=== PATIENT | male | born 1950 | race Caucasian/White ===

== ENCOUNTER 2016-08-11 23:15 | Emergency (ER) | payer SELFPAY ==
[~2016-08-11 23:15] MED LIST: B-1100 MG PO; BACTRIM DS1 TAB PO; FOLIC ACID1 MG PO; IRON325 MG PO; PRENATABS RX PO
--- NOTE | 2016-08-12 03:10 | DIAGNOSTIC IMAGING REPORT ---
PROCEDURE: CT HEAD WITHOUT CONTRAST INDICATION: TRAUMA/INJURY TECHNIQUE: Noncontrast axial images with sagittal and coronal reformations. Preliminary report provided by Kyle Thacker MD ([facility]). COMPARISON: None. FINDINGS: Mild extracranial soft tissue swelling over the left lateral frontal scalp. Mild to moderate cortical atrophic changes. Brain and ventricles are otherwise normal. No evidence of an acute process or hemorrhage. Sinuses and mastoids are normal. IMPRESSION: 1. Mild extracranial soft tissue swelling over the left frontal scalp. 2. Mild generalize cortical atrophic changes. 3. Otherwise negative head CT. No evidence of intracranial injury. 4. Preliminary report provided to Dr. Jeremy Kenny. All CT scans at this facility use dose modulation, iterative reconstruction, and/or weight-based dosing when appropriate to reduce radiation dose to as low as reasonably achievable.
--- NOTE | 2016-08-12 03:10 | DIAGNOSTIC IMAGING REPORT ---
PROCEDURE: CT HEAD WITHOUT CONTRAST INDICATION: TRAUMA/INJURY TECHNIQUE: Noncontrast axial images with sagittal and coronal reformations. Preliminary report provided by Kyle Thacker MD ([facility]). COMPARISON: None. FINDINGS: Mild extracranial soft tissue swelling over the left lateral frontal scalp. Mild to moderate cortical atrophic changes. Brain and ventricles are otherwise normal. No evidence of an acute process or hemorrhage. Sinuses and mastoids are normal. IMPRESSION: 1. Mild extracranial soft tissue swelling over the left frontal scalp. 2. Mild generalize cortical atrophic changes. 3. Otherwise negative head CT. No evidence of intracranial injury. 4. Preliminary report provided to Dr. Jeermy Kenny. All CT scans at this facility use dose modulation, iterative reconstruction, and/or weight-based dosing when appropriate to reduce radiation dose to as low as reasonably achievable.
--- NOTE | 2016-08-12 09:30 | ED CLINICAL REPORT ---
Clinical Report - Physicians/Mid Levels [facility] [address] [place] [address] 08/11/2016 23:15 Patient: LORNE MOLINA Time Seen: 00:52 Aug 12 2016. Arrived- By private vehicle. Historian- patient. CPT: ER phys charges level 4 (#[id number]). HISTORY OF PRESENT ILLNESS Chief Complaint: INJURY TO HEAD. Location of injuries- head. The injury occurred just prior to arrival. Fell (intoxicated and fell, hitting head.). Occurred on a street. The patient complains of mild pain. The patient sustained a blow to the head and had uncertain duration loss of consciousness. No neck pain. Not dazed. REVIEW OF SYSTEMS No numbness, nausea, chest pain, weakness or vomiting. No laceration. All systems otherwise negative, except as recorded above. PAST HISTORY See nurses notes. Substance Abuse Alcoholism. Emphysema. ADDITIONAL SURGERIES: GI surgery to remove a tumor. --. Tetanus immunization status is up-to-date. SOCIAL HISTORY Regular alcohol use. ADDITIONAL NOTES The nursing notes have been reviewed. PHYSICAL EXAM Vital Signs: 08/11/2016 23:17 BP: 135/91. HR: 81. RR: 24. O2 saturation: 97%. Temp: 97.3 F. Li-Johnson pain scale: 4/10. Appearance: Alert. Head: Forehead: small abrasion. Eyes: Pupils equal, round and reactive to light. EOM intact. ENT: No dental injury. Neck: Painless ROM. Neck non-tender. CVS: Heart sounds normal. Pulses normal. Respiratory: Breath sounds normal. Chest nontender. Abdomen: Soft and nontender. Back: No tenderness. Skin: Skin intact. Skin warm. Extremities: Normal inspection. Pelvis stable. Extremities atraumatic. Neuro: Altered mental status: lethargic. Eyes open spontaneously. Best verbal response: disoriented. Best motor response: obeys commands. Mood/affect normal. No motor deficit. No sensory deficit. LABS, X-RAYS, AND EKG CT Head: No acute disease. Laboratory Tests: CBC w Diff: (ROXANNE: 08/12/2016 01:30) ( MsgRcvd 08/12/2016 01:38) Final results Test Result Flag Units (Reference) WHITE BLOOD COUNT 6.5 K/uL (4.5-11.5) RED BLOOD COUNT 4.65 M/uL (4.50-5.90) HEMOGLOBIN 14.0 gm/dL (13.5-17.5) HEMATOCRIT 41.5 % (41.0-53.0) MEAN CELL VOLUME 89 fL (80-100) MEAN CORPUSCULAR HGB 30 pg (26-34) MEAN CORPUSCULAR HGB CONC 34 g/dL (31-37) RED CELL DISTRIBUTION WIDTH 15.1 H % (11.6-14.8) PLATELET COUNT 238 K/uL (150-400) NEUTROPHIL % 55.8 % (50-75) LYMPH % 33.3 % (25-40) MONO % 9.0 % (3-14) EOSINOPHIL % 1.4 % (0-4) BASOPHIL % 0.5 % (0-2) PT with INR: (ROXANNE: 08/12/2016 01:30) ( [facility] 08/12/2016 01:46) Final results Test Result Flag Units (Reference) INR 0.9 (0.8-1.2) Low Intensity Therapy: INR 1.5-2.0 PT range 18.5-23.1Mod.Intensity Therapy: INR 2.0-3.0 PT range 23.1-31.5High Intensity Therapy: INR 2.5-3.5 PT range 27.4-35.5High Intensity Therapy 2: INR 3.0-4.0 PT range 31.5-39.3 Ethyl Alcohol: (ROXANNE: 08/12/2016 06:40) ( [facility] 08/12/2016 06:57) Final results Test Result Flag Units (Reference) ETHYL ALCOHOL 125 H mg/dL (3-10) CMP: (ROXANNE: 08/12/2016 01:30) ( [facility] 08/12/2016 01:53) Final results Test Result Flag Units (Reference) GLUCOSE 89 mg/dL (70-110) BUN 7 mg/dL (7-18) CREATININE 0.6 mg/dL (0.6-1.3) Estimated GFR >60 mL/min Estimated GFR- >60 mL/min Note: Persistent reduction over 3 months in eGFR<60 mL/min/1.73 m2 defines CKD. Patients with eGFR values>=60 mL/min/1.73 m2 may also have CKD if evidence ofpersistent proteinuria. Additional information may be foundat www.kidney.org. SODIUM 138 mmol/L (136-145) POTASSIUM 3.4 L mmol/L (3.5-5.1) CHLORIDE 101 mmol/L (98-107) CARBON DIOXIDE 23 mmol/L (21-32) CALCIUM 7.9 L mg/dL (8.5-10.1) TOTAL PROTEIN 7.0 g/dL (6.4-8.2) ALBUMIN 3.4 g/dL (3.3-5.0) BILIRUBIN, TOTAL 0.3 mg/dL (0.0-1.0) ALKALINE PHOSPHATASE 78 U/L (46-116) AST (SGOT) 21 U/L (15-37) ALT (SGPT) 26 U/L (12-78) LIPASE 100 U/L (73-393) ETHYL ALCOHOL 233 H mg/dL (3-10) . PROGRESS AND PROCEDURES Course of Care: 06:50 08/12/16. Pt still lethargic and cannot get mobilized. 09:24 08/12/16. Pt now A&O times 3. Pt has 80k in the bank but will not rent an apartment. Pt says he has no intention to stop drinking alcohol. [facility] detox is offered. Patient/family counseled. Disposition: Discharged. Condition: stable and improved. CLINICAL IMPRESSION Alcohol intoxication with delirium and alcohol dependence. Fall on same level by stumbling. INSTRUCTIONS (Consider detox.). Understanding of the discharge instructions verbalized by patient. Follow-up with: [facility], , , [address], , [place], [id number] Follow up in one week. Call for an appointment. (Electronically signed by Jeremy Kenny MD 08/16/2016 20:42)
--- NOTE | 2016-08-12 09:30 | ED ORDER SUMMARY ---
..... Patient: LORNE MOLINA OrderSheet [facility] VisitID: [id number] [place] [address] 65y, M Registration Date/Time: 08/11/2016 ORDER SHEET Weight: 77.1 kg (stated) Allergies: No Known Drug Allergy GENERAL ORDERS: CT Head wo Cont Urgent (00:56 08/12/2016 Garret JUDD) (Ack 0:58 CHagerty ER Reefer Engineer) (1:47 CHagerty ER Reefer Engineer) CBC w Diff Urgent (00:56 08/12/2016 Garret JUDD) (Ack 0:58 CHagerty ER Reefer Engineer) (1:36 DDavis R.N.) CMP Urgent (00:56 08/12/2016 Garret JUDD) (Ack 0:58 [facility] ER Reefer Engineer) (1:36 DDavis R.N.) Lipase Urgent (00:56 08/12/2016 Garret JUDD) (Ack 0:58 CHagerty ER Reefer Engineer) (1:36 DDavis R.N.) Ethyl Alcohol Urgent (00:56 08/12/2016 Garret JUDD) (Ack 0:58 CHagerty ER Reefer Engineer) (1:36 DDavis R.N.) PT with INR Urgent (00:56 08/12/2016 Garret JUDD) (Ack 0:58 CHagerty ER Reefer Engineer) (1:36 DDavis R.N.) Ethyl Alcohol Urgent (06:34 08/12/2016 DDavis R.N. verbal order read back to Garret JUDD) (Ack 6:35 CHagerty ER Reefer Engineer) (7:21 JSimbeck R.N.) - (breakfast and home.) (09:24 08/12/2016 Garret JUDD) (9:34 OHernandez) MEDICATION ORDERS: Thiamine IM 100 mg (NOW) (00:56 08/12/2016 Garret JUDD) (1:36 DDavis R.N.) IV FLUIDS: ORDER SHEET NOTES: [Electronically signed by David Mohan R.N. (12:48 08/12/2016)] [Electronically signed by Jeremy Kenny MD (20:42 08/16/2016)] [Electronically locked/signed by David Mohan R.N. (12:48 08/12/2016)]
--- NOTE | 2016-08-12 09:30 | ED NURSING NOTES ---
Clinical Report - Nurses [facility] [place] [address] 08/11/2016 23:15 Patient: LORNE MOLINA TRIAGE Triage time 23:18. Acuity: LEVEL 3. Chief Complaint: FALL (from standing, unwitnessed, unknown LOC). ANGELA COMA SCORE: Angela Coma Scale: 14- eyes open spontaneously (4); best verbal response- disoriented (4); best motor response- obeys commands (6). --23:22 Mynor Heard R.N. 23:17 08/11/16. BP: 135/91. HR: 81. RR: 24 (regular and labored). O2 saturation: 97%. Temp: 97.3 F (oral). Li-Johnson pain scale: 4/10. --23:22 Mynor Heard R.N. Weight: 77.1 kg stated. Height/Length: 70 inches Per Patient. BMI: 24.4. --23:21 Mynor Heard R.N. Medications None. --23:18 Mynor Heard R.N. Allergies No Known Drug Allergy. --23:18 Mynor Heard R.N. History Arrived by EMS. Historian: patient. This occurred just prior to arrival. SOCIAL HX: Smoker- current status unknown (cigarette). Alcohol use. No drug use. ( Denies SI/HI). FALL RISK ASSESSMENT: Fall risk assessment completed. No fall risk identified. NUTRITIONAL RISK ASSESSMENT: The nutritional risk assessment revealed no deficiencies. FUNCTIONAL ASSESSMENT: Functional assessment: no impairments noted. LEARNING NEEDS ASSESSMENT: The learning needs assessment revealed no barriers. --23:22 Mynor Heard R.N. PROBLEMS: Substance Abuse [Active]. --23:18 Mynor Heard R.N. Alcoholism. Emphysema. --23:18 Mynor Heard R.N. ADDITIONAL SURGERIES: GI surgery to remove a tumor. --23:18 Mynor Heard R.N. Interventions ID band on patient. To treatment room. --23:22 Mynor Heard R.N. PHYSICAL ASSESSMENT To room via stretcher. GENERAL / NEURO / PSYCH: The patient is disoriented to place, time and situation. Does not appear in pain or distress or anxious. SKIN: Skin is warm and dry. Skin not intact. ( abrasions above left eyebrow, no laceration observed). --23:24 Mynor Heard R.N. GENERAL / NEURO / PSYCH: ( patient calm and conversant, smells like etoh and cigarette smoke). Does not appear in pain or distress or anxious. RESPIRATORY: Respirations not labored. Breath sounds within normal limits. No decreased breath sounds. CVS: Capillary refill less than 2 seconds. --23:25 Mynor Herad R.N. RESPIRATORY: Respirations not labored. SKIN: Skin intact. Skin is warm and dry. --04:02 Mynor Heard R.N. CVS: Capillary refill less than 2 seconds. --04:02 Mynor Heard R.N. NURSING PROGRESS NOTES Two patient identifiers checked. Call light placed in reach. Side rails up x 2. Bed placed in lowest position. Brakes of bed on. Patient ready for evaluation- chart flagged. Patient waiting for evaluation. --23:39 Mynor Heard R.N. ( patinet's wounds cleansed and covered with bandage). --23:40 Mynor Heard R.N. ( patient appears to be sleeping in bed). --00:41 Mynor Heard R.N. 01:36 08/12/2016 Thiamine (Vitamin B-1) IM 100 mg given. Given in the left gluteus ca. Allergies verified and confirmed 5 rights. --01:36 Mynor Heard R.N. ( Patient urinated all over himself and the bed. Bed linen changed, patient changed into a gown and cleaned up.). --01:37 Mynor Heard R.N. ( Patient urinated all over himself and the floor, and the bed. I changed his linens and cleaned him up. I put a brief on the patient.). --02:49 Mynor Heard R.N. ( patient resting in bed, appears to be sleeping in bed). --03:31 Mynor Heard R.N. ( patient sleep in bed). --04:02 Mynor Heard R.N. ( attempted to get breathalyzer x3 patient unable to blow long enough for results.). --05:11 Roma Castro R.N. 05:11 08/12/16. BP: 100/71. HR: 73. RR: 14. O2 saturation: 99%. --05:12 Roma Castro R.N. ( Patient report given to David Garcia RN). --07:11 Mynor Heard R.N. 07:30 08/12/16. BP: 100/63. HR: 72. RR: 16. O2 saturation: 96%. Pain level now: 010. --09:03 David Mohan R.N. 08:00 08/12/16. BP: 103/68. HR: 70. RR: 16. O2 saturation: 96% on room air. Pain level now: 010. --09:03 David Mohan R.N. 08:30 08/12/16. BP: 90/54. HR: 74. RR: 20. O2 saturation: 98% on room air. Pain level now: 010. --09:04 David Mohan R.N. DISPOSITION / DISCHARGE Departure time: 1005. Condition at departure: improved and stable. No learning barriers present. Discharge instructions provided and reviewed with the patient. Patient verbalized understanding. Written instructions provided in Romansh. The patient was discharged by the physician. He was discharged home. He left the Emergency Department ambulatory and via private vehicle. Patient driving. --10:06 David Mohan R.N. 09:30 08/12/16. BP: 95/52. HR: 72. RR: 16. O2 saturation: 98% on room air. Temp: 97.3 F (oral). Pain level now: 0/10. --10:06 David Mohan R.N. Locked/Released at 08/12/2016 12:48 by David Mohan R.N.
--- NOTE | 2016-08-12 09:30 | ED CLINICAL REPORT ---
Clinical Report - Physicians/Mid Levels [facility] [address] [place] [address] 08/11/2016 23:15 Patient: LORNE MOLINA Time Seen: 00:52 Aug 12 2016. Arrived- By private vehicle. Historian- patient. CPT: ER phys charges level 4 (#[id number]). HISTORY OF PRESENT ILLNESS Chief Complaint: INJURY TO HEAD. Location of injuries- head. The injury occurred just prior to arrival. Fell (intoxicated and fell, hitting head.). Occurred on a street. The patient complains of mild pain. The patient sustained a blow to the head and had uncertain duration loss of consciousness. No neck pain. Not dazed. REVIEW OF SYSTEMS No numbness, nausea, chest pain, weakness or vomiting. No laceration. All systems otherwise negative, except as recorded above. PAST HISTORY See nurses notes. Substance Abuse Alcoholism. Emphysema. ADDITIONAL SURGERIES: GI surgery to remove a tumor. --. Tetanus immunization status is up-to-date. SOCIAL HISTORY Regular alcohol use. ADDITIONAL NOTES The nursing notes have been reviewed. PHYSICAL EXAM Vital Signs: 08/11/2016 23:17 BP: 135/91. HR: 81. RR: 24. O2 saturation: 97%. Temp: 97.3 F. Li-Johnson pain scale: 4/10. Appearance: Alert. Head: Forehead: small abrasion. Eyes: Pupils equal, round and reactive to light. EOM intact. ENT: No dental injury. Neck: Painless ROM. Neck non-tender. CVS: Heart sounds normal. Pulses normal. Respiratory: Breath sounds normal. Chest nontender. Abdomen: Soft and nontender. Back: No tenderness. Skin: Skin intact. Skin warm. Extremities: Normal inspection. Pelvis stable. Extremities atraumatic. Neuro: Altered mental status: lethargic. Eyes open spontaneously. Best verbal response: disoriented. Best motor response: obeys commands. Mood/affect normal. No motor deficit. No sensory deficit. LABS, X-RAYS, AND EKG CT Head: No acute disease. Laboratory Tests: CBC w Diff: (ROXANNE: 08/12/2016 01:30) ( MsgRcvd 08/12/2016 01:38) Final results Test Result Flag Units (Reference) WHITE BLOOD COUNT 6.5 K/uL (4.5-11.5) RED BLOOD COUNT 4.65 M/uL (4.50-5.90) HEMOGLOBIN 14.0 gm/dL (13.5-17.5) HEMATOCRIT 41.5 % (41.0-53.0) MEAN CELL VOLUME 89 fL (80-100) MEAN CORPUSCULAR HGB 30 pg (26-34) MEAN CORPUSCULAR HGB CONC 34 g/dL (31-37) RED CELL DISTRIBUTION WIDTH 15.1 H % (11.6-14.8) PLATELET COUNT 238 K/uL (150-400) NEUTROPHIL % 55.8 % (50-75) LYMPH % 33.3 % (25-40) MONO % 9.0 % (3-14) EOSINOPHIL % 1.4 % (0-4) BASOPHIL % 0.5 % (0-2) PT with INR: (ROXANNE: 08/12/2016 01:30) ( [facility] 08/12/2016 01:46) Final results Test Result Flag Units (Reference) INR 0.9 (0.8-1.2) Low Intensity Therapy: INR 1.5-2.0 PT range 18.5-23.1Mod.Intensity Therapy: INR 2.0-3.0 PT range 23.1-31.5High Intensity Therapy: INR 2.5-3.5 PT range 27.4-35.5High Intensity Therapy 2: INR 3.0-4.0 PT range 31.5-39.3 Ethyl Alcohol: (ROXANNE: 08/12/2016 06:40) ( [facility] 08/12/2016 06:57) Final results Test Result Flag Units (Reference) ETHYL ALCOHOL 125 H mg/dL (3-10) CMP: (ROXANNE: 08/12/2016 01:30) ( [facility] 08/12/2016 01:53) Final results Test Result Flag Units (Reference) GLUCOSE 89 mg/dL (70-110) BUN 7 mg/dL (7-18) CREATININE 0.6 mg/dL (0.6-1.3) Estimated GFR >60 mL/min Estimated GFR- >60 mL/min Note: Persistent reduction over 3 months in eGFR<60 mL/min/1.73 m2 defines CKD. Patients with eGFR values>=60 mL/min/1.73 m2 may also have CKD if evidence ofpersistent proteinuria. Additional information may be foundat www.kidney.org. SODIUM 138 mmol/L (136-145) POTASSIUM 3.4 L mmol/L (3.5-5.1) CHLORIDE 101 mmol/L (98-107) CARBON DIOXIDE 23 mmol/L (21-32) CALCIUM 7.9 L mg/dL (8.5-10.1) TOTAL PROTEIN 7.0 g/dL (6.4-8.2) ALBUMIN 3.4 g/dL (3.3-5.0) BILIRUBIN, TOTAL 0.3 mg/dL (0.0-1.0) ALKALINE PHOSPHATASE 78 U/L (46-116) AST (SGOT) 21 U/L (15-37) ALT (SGPT) 26 U/L (12-78) LIPASE 100 U/L (73-393) ETHYL ALCOHOL 233 H mg/dL (3-10) . PROGRESS AND PROCEDURES Course of Care: 06:50 08/12/16. Pt still lethargic and cannot get mobilized. 09:24 08/12/16. Pt now A&O times 3. Pt has 80k in the bank but will not rent an apartment. Pt says he has no intention to stop drinking alcohol. [facility] detox is offered. Patient/family counseled. Disposition: Discharged. Condition: stable and improved. CLINICAL IMPRESSION Alcohol intoxication with delirium and alcohol dependence. Fall on same level by stumbling. INSTRUCTIONS (Consider detox.). Understanding of the discharge instructions verbalized by patient. Follow-up with: [facility], , , [address], , [place], [address] Follow up in one week. Call for an appointment. (Electronically signed by Jeremy Kenny MD 08/16/2016 20:42)
--- NOTE | 2016-08-12 09:30 | ED ORDER SUMMARY ---
..... Patient: LORNE MOLINA OrderSheet [facility] VisitID: [id number] [place] [address] 65y, M Registration Date/Time: 08/11/2016 ORDER SHEET Weight: 77.1 kg (stated) Allergies: No Known Drug Allergy GENERAL ORDERS: CT Head wo Cont Urgent (00:56 08/12/2016 Garret JUDD) (Ack 0:58 CHagerty ER Section Gang) (1:47 CHagerty ER Section Gang) CBC w Diff Urgent (00:56 08/12/2016 Garret JUDD) (Ack 0:58 CHagerty ER Section Gang) (1:36 DDavis R.N.) CMP Urgent (00:56 08/12/2016 Garret JUDD) (Ack 0:58 CHagerty ER Section Gang) (1:36 DDavis R.N.) Lipase Urgent (00:56 08/12/2016 Garret JUDD) (Ack 0:58 CHagerty ER Section Gang) (1:36 DDavis R.N.) Ethyl Alcohol Urgent (00:56 08/12/2016 Garret JUDD) (Ack 0:58 CHagerty ER Section Gang) (1:36 DDavis R.N.) PT with INR Urgent (00:56 08/12/2016 Garret JUDD) (Ack 0:58 CHagerty ER Section Gang) (1:36 DDavis R.N.) Ethyl Alcohol Urgent (06:34 08/12/2016 DDavis R.N. verbal order read back to Garret JUDD) (Ack 6:35 CHagerty ER Section Gang) (7:21 JSimbeck R.N.) - (breakfast and home.) (09:24 08/12/2016 Garret JUDD) (9:34 OHernandez) MEDICATION ORDERS: Thiamine IM 100 mg (NOW) (00:56 08/12/2016 Garret JUDD) (1:36 DDavis R.N.) IV FLUIDS: ORDER SHEET NOTES: [Electronically signed by David Mohan R.N. (12:48 08/12/2016)] [Electronically signed by Jeremy Kenny MD (20:42 08/16/2016)] [Electronically locked/signed by David Mohan R.N. (12:48 08/12/2016)]
--- NOTE | 2016-08-16 20:42 | ED DISCHARGE INSTRUCTIONS ---
Patient: LORNE MOLINA General Instructions [facility] VisitID: [id number] [address] [place] [address] 65y, M Registration Date/Time: 08/11/2016 Alcohol intoxication with delirium and alcohol dependence. Fall on same level by stumbling. INSTRUCTIONS (Consider detox.). Understanding of the discharge instructions verbalized by patient. Follow-up with: [facility], , , [address], , [place], [address] Follow up in one week. Call for an appointment. ADDITIONAL INFORMATION Mechanical Fall You have had a fall today. It appears that the cause is mechanical. That means that you slipped, tripped or lost your balance. If your fall had been due to fainting or a seizure, further tests would be required. Home Care: Rest today and resume your normal activities when you are feeling back to normal. If you were injured during the fall, follow the advice from your doctor regarding care of your injury. You may use acetaminophen (Tylenol) or ibuprofen (Motrin, Advil) to control pain, unless another pain medicine was prescribed. [NOTE: If you have chronic liver or kidney disease or ever had a stomach ulcer or GI bleeding, talk with your doctor before using these medicines.] Fall Prevention: Was there anything that caused your fall that can be fixed, removed, or replaced? Make your home safe by keeping walkways clear of objects you may trip over. Use non-slip pads under rugs. Do not walk in poorly lit areas. Do not stand on chairs or wobbly ladders. Use caution when reaching overhead or looking upward. This position can cause a loss of balance. Be sure your shoes fit properly, have non-slip bottoms and are in good condition. Be cautious when going up and down curbs, and walking on uneven sidewalks. If your balance is poor, consider using a cane or walker. Stay as active as you can. Balance, flexibility, strength, and endurance all come from exercise. They all play a role in preventing falls. Follow Up with your doctor or as advised by our staff. Get Prompt Medical Attention if any of the following occur: Repeated mechanical falls, or unexplained falls Dizziness, fainting or seizure Severe headache Chest pain or shortness of breath Palpitations (very rapid or very slow or irregular heartbeat) Blood in vomit, stools (black or red color) Weakness of an arm or leg or one side of the face Difficulty with speech or vision Alcohol Intoxication Alcohol intoxication occurs when you drink alcohol faster than your liver can remove it from your system. Alcohol intoxication affects your judgment and coordination. Very high blood alcohol levels can cause coma, very slow breathing and even . If you drink alcohol every day, this may gradually cause permanent damage to your liver, brain, heart, pancreas and other organs. Alcohol use during may cause permanent damage to the growing baby. Home Care: Do not drink any more alcohol. DO NOT DRIVE until all effects of the alcohol have worn off. Get lots of rest over the next few days. Drink plenty of water and other non-alcoholic liquids. Try to eat regular meals. If you have been drinking heavily on a daily basis, you may go through alcohol withdrawl. This is also called the shakes or DTs. The usual symptoms last 3 to 4 days and may include nervousness, shakiness, nausea, sweating or sleeplessness. During this time, it is best that you stay with family or friends who can help and support you. You can also admit yourself to a residential detox program. If your symptoms are severe, contact your doctor for medicines to help. Follow Up: If alcohol is causing a problem in your life, these and other organizations can help you: Alcoholics Anonymous offers support through a self-help fellowship. There are no dues or fees. See the Yellow Pages and call for time and place of meetings. www.aa.org [employer] offers support to families of alcohol users. 608.933.9849 www.al-anon.org National [place] On Alcoholism And Drug Dependence 705-903-0911 www.ncadd.org There are also inpatient or residential alcohol detox programs. Check the Internet or phonebook Yellow Pages under Drug Abuse & Treatment Centers. Get Prompt Medical Attention if any of the following occur: there) You have been given the following additional information: Fall, Mechanical Alcohol Intoxication (Electronically signed by Jeremy Kenny MD 08/16/2016 20:42)
--- NOTE | 2016-08-16 20:42 | ED MED RECONCILIATION SUMMARY ---
Patient: LORNE MOLINA Medication Reconciliation Report [facility] VisitID: [id number] [address] [place] [address] 65y, M Registration Date/Time: 08/11/2016 Weight: 77.1 kg Height/Length: 70 in. BMI: 24.4 ALLERGIES: No Known Drug Allergy The patient's Home Medications are listed below: NONE. The source(s) of the original Home Medication information: Not obtained. The following Medications were given to the patient in the Emergency Department: Thiamine [IM] IM 100 mg, administered: 08/12/2016 1:36:00 AM The following Medications were prescribed to the patient: None.
--- NOTE | 2016-08-16 20:42 | ED MAR SUMMARY ---
..... Medication Administration Record [facility] [address] [address] Patient: LORNE MOLINA Visit ID: [id number] 65y, M Weight: 77.1 kg Height/Length: 70 in BMI: 24.4 ALLERGIES: No Known Drug Allergy Given 01:36 08/12/2016 Mynor Heard R.N. Medication Administered: THIAMINE [IM] (VITAMIN B-1), Dose: 100 mg IM. Medication Ordered: Thiamine IM 100 mg (NOW).
--- NOTE | 2016-08-16 20:42 | ED MAR SUMMARY ---
..... Medication Administration Record [facility] [address] [place] [address] Patient: LORNE MOLINA Visit ID: [id number] 65y, M Weight: 77.1 kg Height/Length: 70 in BMI: 24.4 ALLERGIES: No Known Drug Allergy Given 01:36 08/12/2016 Mynor Heard R.N. Medication Administered: THIAMINE [IM] (VITAMIN B-1), Dose: 100 mg IM. Medication Ordered: Thiamine IM 100 mg (NOW).
--- NOTE | 2016-08-16 20:42 | ED DISCHARGE INSTRUCTIONS ---
Patient: LORNE MOLINA General Instructions [facility] VisitID: [id number] [address] [place] [address] 65y, M Registration Date/Time: 08/11/2016 Alcohol intoxication with delirium and alcohol dependence. Fall on same level by stumbling. INSTRUCTIONS (Consider detox.). Understanding of the discharge instructions verbalized by patient. Follow-up with: [facility], , , [address], , [place], [address] Follow up in one week. Call for an appointment. ADDITIONAL INFORMATION Mechanical Fall You have had a fall today. It appears that the cause is mechanical. That means that you slipped, tripped or lost your balance. If your fall had been due to fainting or a seizure, further tests would be required. Home Care: Rest today and resume your normal activities when you are feeling back to normal. If you were injured during the fall, follow the advice from your doctor regarding care of your injury. You may use acetaminophen (Tylenol) or ibuprofen (Motrin, Advil) to control pain, unless another pain medicine was prescribed. [NOTE: If you have chronic liver or kidney disease or ever had a stomach ulcer or GI bleeding, talk with your doctor before using these medicines.] Fall Prevention: Was there anything that caused your fall that can be fixed, removed, or replaced? Make your home safe by keeping walkways clear of objects you may trip over. Use non-slip pads under rugs. Do not walk in poorly lit areas. Do not stand on chairs or wobbly ladders. Use caution when reaching overhead or looking upward. This position can cause a loss of balance. Be sure your shoes fit properly, have non-slip bottoms and are in good condition. Be cautious when going up and down curbs, and walking on uneven sidewalks. If your balance is poor, consider using a cane or walker. Stay as active as you can. Balance, flexibility, strength, and endurance all come from exercise. They all play a role in preventing falls. Follow Up with your doctor or as advised by our staff. Get Prompt Medical Attention if any of the following occur: Repeated mechanical falls, or unexplained falls Dizziness, fainting or seizure Severe headache Chest pain or shortness of breath Palpitations (very rapid or very slow or irregular heartbeat) Blood in vomit, stools (black or red color) Weakness of an arm or leg or one side of the face Difficulty with speech or vision Alcohol Intoxication Alcohol intoxication occurs when you drink alcohol faster than your liver can remove it from your system. Alcohol intoxication affects your judgment and coordination. Very high blood alcohol levels can cause coma, very slow breathing and even . If you drink alcohol every day, this may gradually cause permanent damage to your liver, brain, heart, pancreas and other organs. Alcohol use during may cause permanent damage to the growing baby. Home Care: Do not drink any more alcohol. DO NOT DRIVE until all effects of the alcohol have worn off. Get lots of rest over the next few days. Drink plenty of water and other non-alcoholic liquids. Try to eat regular meals. If you have been drinking heavily on a daily basis, you may go through alcohol withdrawl. This is also called the shakes or DTs. The usual symptoms last 3 to 4 days and may include nervousness, shakiness, nausea, sweating or sleeplessness. During this time, it is best that you stay with family or friends who can help and support you. You can also admit yourself to a residential detox program. If your symptoms are severe, contact your doctor for medicines to help. Follow Up: If alcohol is causing a problem in your life, these and other organizations can help you: Alcoholics Anonymous offers support through a self-help fellowship. There are no dues or fees. See the Yellow Pages and call for time and place of meetings. www.aa.org [employer] offers support to families of alcohol users. 273.258.2414 www.al-anon.org [employer] [facility] [employer] 335-816-2707 www.ncadd.org There are also inpatient or residential alcohol detox programs. Check the Internet or phonebook Yellow Pages under Drug Abuse & Treatment Centers. Get Prompt Medical Attention if any of the following occur: there) You have been given the following additional information: Fall, Mechanical Alcohol Intoxication (Electronically signed by Jeremy Kenny MD 08/16/2016 20:42)
--- NOTE | 2016-08-16 20:42 | ED MED RECONCILIATION SUMMARY ---
Patient: LORNE MOLINA Medication Reconciliation Report [facility] VisitID: [id number] [address] [place] [address] 65y, M Registration Date/Time: 08/11/2016 Weight: 77.1 kg Height/Length: 70 in. BMI: 24.4 ALLERGIES: No Known Drug Allergy The patient's Home Medications are listed below: NONE. The source(s) of the original Home Medication information: Not obtained. The following Medications were given to the patient in the Emergency Department: Thiamine [IM] IM 100 mg, administered: 08/12/2016 1:36:00 AM The following Medications were prescribed to the patient: None.
== END 2016-08-12 10:05 | disposition home or self-care (01) ==
LOC: ED SRH 23:15
DX: S00.81XA Abrasion of other part of head, initial encounter (principal); F10.221 Alcohol dependence with intoxication delirium; W19.XXXA Unspecified fall, initial encounter; Y93.9 Activity, unspecified; Y92.410 Unspecified street and highway as the place of occurrence of the external cause; Y99.9 Unspecified external cause status
CPT/HCPCS: 90100; 92010; 92235; 94060; 95059

== ENCOUNTER 2016-08-12 19:23 | Emergency (ER) | payer SELFPAY ==
--- NOTE | 2016-08-12 21:52 | DIAGNOSTIC IMAGING REPORT ---
PROCEDURE: CT HEAD WITHOUT CONTRAST INDICATION: Left frontal abrasion. TECHNIQUE: Noncontrast axial images with sagittal and coronal reformations. COMPARISON: Head CT 08/12/2016 at 01:41 a.m. FINDINGS: Minor left frontal scalp contusion. Mild cortical atrophy and enlargement of the ventricular system. Minor white matter chronic ischemic changes. There is no acute CVA, hemorrhage, mass or midline shift. Minor right maxillary sinus disease. Opacified right mastoid air cells. IMPRESSION: 1. Mild left frontal scalp contusion 2. Mild cortical atrophy with minor white matter chronic ischemic changes 3. No acute intracranial abnormality 4. Opacified right mastoid air cells which may represent mastoiditis 5. Findings discussed with Ward Rankin at 09:44 p.m., [place] Standard Time
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
--- NOTE | 2016-08-13 07:00 | ED NURSING NOTES ---
Clinical Report - Nurses [facility] [address] [place] [address] 08/12/2016 19:23 Patient: LORNE MOLINA TRIAGE Triage time 19:15 Aug 12 2016. Acuity: LEVEL 3. Chief Complaint: ALTERED MENTAL STATUS. Alert. No acute distress. SEPSIS SCREEN: Sepsis Screen. Negative (no infection suspected/documented). NAVEED COMA SCORE: Marietta Coma Scale: 14- eyes open spontaneously (4); best verbal response- disoriented (4); best motor response- obeys commands (6). --19:50 Destini Bhandari R.N. 19:54 08/12/16. BP: 147/103. HR: 98. RR: 16. O2 saturation: 98%. Temp: 98.5 F. Pain level now: 0/10. --19:54 Destini Bhandari R.N. Weight: 81.6 kg estimated. Height/Length: 74 inches Estimated. BMI: 23.1. --19:48 Destini Bhandari R.N. Medications None. --19:47 Destini Bhandari R.N. Allergies No Known Drug Allergy. --19:47 Destini Bhandari R.N. History Arrived by EMS. Historian: patient. ( ETOH). 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 PAST MEDICAL HX: Immunizations: status is unknown. SOCIAL HX: Current every day heavy tobacco smoker. Heavy alcohol use; consumes beer. No drug use. No infectious disease exposure. SELF HARM ASSESSMENT: A self harm assessment was performed. (unable to obtain). NUTRITIONAL RISK ASSESSMENT: The nutritional risk assessment revealed no deficiencies. FUNCTIONAL ASSESSMENT: Functional assessment: no impairments noted. LEARNING NEEDS ASSESSMENT: The learning needs assessment revealed no barriers. ABUSE ASSESSMENT: Abuse assessment: unable to obtain. FALL RISK ASSESSMENT: Fall risk assessment completed. Risk factors identified include patient history of fall and impairment of cognition. SKIN INTEGRITY ASSESSMENT: Skin integrity risk assessment completed. No skin integrity risk identified. --19:50 Destini Bhandari R.N. PROBLEMS: Substance Abuse [Active]. --19:48 Destini Bhandari R.N. Alcoholism. Emphysema. Alcohol Intoxication. Contusion. Head Injury. Fall. --19:48 Destini Bhandari R.N. ADDITIONAL SURGERIES: GI surgery to remove a tumor. --19:48 Destini Bhandari R.N. Interventions ID band on patient. To room. --19:50 Destini Bhandari R.N. PHYSICAL ASSESSMENT To room via stretcher. Patient gowned. GENERAL / NEURO / PSYCH: Alert. The patient is disoriented to person. Patient's speech is whispered. Patient appears unkempt and smells of alcohol. RESPIRATORY: Cough. The patient is a smoker. It has been similar to previous symptoms. CVS: Capillary refill less than 2 seconds. GI / : Abdomen soft and nontender. EXTREMITIES: No lower extremity edema. SKIN: Skin is warm and dry. --19:51 Destini Bhandari R.N. NURSING PROGRESS NOTES Patient gowned. Head of bed elevated 30 degrees. 14 fr price catheter placed. Reason for indwelling catheter: patient's decreased level of consciousness. During procedure hand hygiene observed and sterile equipment and aseptic technique used. Return of 100 mL yellow-colored clear urine; attached to bedside drainage bag positioned below the bladder and secured with stabilization device. He tolerated procedure well. Patient identifiers checked. Side rails up x 2. Bed placed in lowest position. Brakes of bed on. --19:54 Destini Bhandari R.N. 20:03 08/12/2016 Ativan (LORazepam) IM 2 mg given. Given in the left anterior lateral thigh. Allergies verified, confirmed 5 rights and sedative warning given to the patient. --20:03 Destini Bhandari R.N. Reassessment after medication administered. He is sleeping. Overall patient status is the same. RESPIRATORY: No respiratory distress. SKIN: Skin is warm and dry. --21:01 Destini Bhandari R.N. Care transferred and report given (Rebecca CAMPUZANO). --23:09 Destini Bhandari R.N. ( Patient resting quietly). --23:33 Juanito, Rebecca The patient is sleeping. RESPIRATORY: No respiratory distress. SKIN: Skin is warm and dry. --00:35 Juanito Rebecca ( Patient cannot perform the breathalyzer, provider notified. Blood draw to follow.). --00:58 JuanitoMagy michelh Patient ID band checked for patient name and birthdate: patient confirmed. Blood samples drawn from the left hand with 21g butterfly by nurse ; labeled in presence of the patient and sent to lab: yancy set. --01:10 Juanito Rebecca 02:30 08/13/16. BP: 154/91. HR: 78. RR: 20. O2 saturation: 95% on room air. Pain level now: 0/10. --02:50 Rebecca Solomon ( Patient given PO food and fluids. Patient cooperative and alert at this time.). --02:50 Juanito Rebecca The patient is sleeping. GENERAL / NEURO / PSYCH: Patient is calm and cooperative. RESPIRATORY: No respiratory distress. SKIN: Skin is warm and dry. --04:41 Rebecca Solomon ( Patient repositioned in the bed. No complaints at this time.). --05:37 Juanito Rebecca ( Breathalyzer .027). --05:41 Juanito Rebecca ( Patient walked to restroom, patient unsteady on his feet. Patient returned to bed and resting quietly. Breakfast ordered for the patient.). --06:50 Juanito Rebecca Care transferred and report given (Khushbu Viramontes). --07:14 Juanito Rebecca Care transferred and report received (from Rebecca Garcia RN). --07:19 Khushbu Thomas R.N. Patient informed about plan of care. ( First contact with Pt. Pt resting quietly does not voice any concerns at this time.). --07:21 Khushbu Thomas R.N. 08:13 08/13/2016 TDAP IM 0.5 mL given. (Lot#: [id number], expiration date: 01/01/2018). Given in the left deltoid. Allergies verified and confirmed 5 rights. Vaccine information statement provided to the patient. --08:13 Khushbu Thomas R.N. Restraint Flowsheet Initial restraint assessment. He has demonstrated non-violent behavior including confusion and fall risk that requires restraints. Alternatives to restraints have been attempted via modifications to environment by decreasing the surrounding stimulus and reality orientation by frequent reminding. Alternative to restraints failed: patient inability to follow directions. Restraint education. Unable to teach at this time. Applied left wrist restraints and right ankle restraints anchored to the stretcher base. Observed by a nurse. Assessment: airway- patent; circulation- capillary refill is less than 2 seconds; mental status- patient is calm; skin- intact, warm and color is within normal limits; behavior is cooperative. Restraints are properly applied. --19:53 Destini Bhandari R.N. 21:00 08/12/16. Subsequent restraint assessment. He has demonstrated non-violent behavior including confusion that requires restraints. Assessment: airway- patent; circulation- capillary refill is less than 2 seconds and pulses palpable; mental status- patient is confused; skin- intact, warm and color is within normal limits; indwelling lines / tubes- performing without impedence of flow; behavior is cooperative. Restraints are properly applied. --23:07 Destini Bhandari R.N. 21:15 08/12/16. Assessment: airway- patent; circulation- capillary refill is less than 2 seconds; mental status- patient is calm; skin- intact, warm and color is within normal limits; indwelling lines / tubes- performing without impedence of flow; behavior is cooperative. Interventions: musculoskeletal- restraints released; emotional support offered. Restraints have been removed (pt cooperative with care and no longer trying to get out of bed.). --23:09 Destini Bhandari R.N. DISPOSITION / DISCHARGE 08:11 08/13/16. BP: 119/70. HR: 90. RR: 16. O2 saturation: 98%. Temp: 98.3 F. Li-Johnson pain scale: 05/06. --08:12 Khushbu Thomas R.N. 08:20. ( pt. ambulating and appears stable at discharge. Does not voice any concerns at this time.). NAVEED COMA SCORE: Marietta Coma Scale: 15- eyes open spontaneously (4); best verbal response- oriented x 4 (5); best motor response- obeys commands (6). --08:33 Khushbu Thomas R.N. 08:20. Departure time: 829. No learning barriers present. Discharge instructions provided and reviewed with the patient. Reviewed referral to family practice for followup. Patient verbalized understanding. Written instructions provided in Swiss. The patient was discharged home and unaccompanied at time of discharge. He left the Emergency Department ambulatory. Medication list reviewed and validated. --08:33 Khushbu Thomas R.N. Locked/Released at 08/13/2016 8:34 by Khushbu Thomas R.N.
--- NOTE | 2016-08-13 07:01 | ED ORDER SUMMARY ---
..... Patient: LORNE MOLINA OrderSheet [facility] VisitID: [id number] [place] [address] 65y, M Registration Date/Time: 08/12/2016 ORDER SHEET Weight: 81.6 kg (estimated) Allergies: No Known Drug Allergy GENERAL ORDERS: CT Head wo Cont Urgent (19:47 08/12/2016 JCoates) (Ack 19:49 OSnell) (21:27 OSnell) Breathalyzer (00:52 08/13/2016 HSoule verbal order read back to [facility] JUDD) (0:57 HSoule) CBC w Diff Urgent (01:00 08/13/2016 HSoule verbal order read back to [facility] JUDD) (Ack 1:01 OSnell) (3:54 HSoule) CMP Urgent (01:00 08/13/2016 HSoule verbal order read back to [facility] JUDD) (Ack 1:01 OSnell) (3:54 HSoule) Lipase Urgent (01:00 08/13/2016 HSoule verbal order read back to [facility] JUDD) (Ack 1:01 OSnell) (3:55 HSoule) Ethyl Alcohol Urgent (01:00 08/13/2016 HSoule verbal order read back to [facility] JUDD) (Ack 1:01 OSnell) (3:55 HSoule) - (ROAD TEST AND SOME FOOD DISCHARGE IF GAIT IS STABLE) (06:58 08/13/2016 [facility] JUDD) (Ack 6:59 OSnell) (6:59 OSnell) MEDICATION ORDERS: Ativan IM 2 mg (NOW) (19:46 08/12/2016 JCoates) (20:03 Sumeet R.N.) Tdap IM 0.5 mL (NOW) (06:58 08/13/2016 [facility] UJDD) (Ack 8:01 Alina R.N.) (8:13 Alina R.N.) IV FLUIDS: ORDER SHEET NOTES: [Electronically signed by Khushbu Thomas R.N. (08:34 08/13/2016)] [Electronically signed by Aiden Harris MD (10:23 08/15/2016)] [Electronically locked/signed by Khushbu Thomas R.N. (08:34 08/13/2016)]
--- NOTE | 2016-08-13 07:01 | ED ORDER SUMMARY ---
..... Patient: LORNE MOLINA OrderSheet [facility] VisitID: [id number] [place] [address] 65y, M Registration Date/Time: 08/12/2016 ORDER SHEET Weight: 81.6 kg (estimated) Allergies: No Known Drug Allergy GENERAL ORDERS: CT Head wo Cont Urgent (19:47 08/12/2016 JCoates) (Ack 19:49 OSnell) (21:27 OSnell) Breathalyzer (00:52 08/13/2016 HSoule verbal order read back to [facility] JUDD) (0:57 HSoule) CBC w Diff Urgent (01:00 08/13/2016 HSoule verbal order read back to [facility] JUDD) (Ack 1:01 OSnell) (3:54 HSoule) CMP Urgent (01:00 08/13/2016 HSoule verbal order read back to [facility] JUDD) (Ack 1:01 OSnell) (3:54 HSoule) Lipase Urgent (01:00 08/13/2016 HSoule verbal order read back to [facility] JUDD) (Ack 1:01 OSnell) (3:55 HSoule) Ethyl Alcohol Urgent (01:00 08/13/2016 HSoule verbal order read back to [facility] JUDD) (Ack 1:01 OSnell) (3:55 HSoule) - (ROAD TEST AND SOME FOOD DISCHARGE IF GAIT IS STABLE) (06:58 08/13/2016 [facility] JUDD) (Ack 6:59 OSnell) (6:59 OSnell) MEDICATION ORDERS: Ativan IM 2 mg (NOW) (19:46 08/12/2016 JCoates) (20:03 Sumeet R.N.) Tdap IM 0.5 mL (NOW) (06:58 08/13/2016 [facility] JUDD) (Ack 8:01 Alina R.N.) (8:13 Alina R.N.) IV FLUIDS: ORDER SHEET NOTES: [Electronically signed by Khushbu Thomas R.N. (08:34 08/13/2016)] [Electronically signed by Aiden Harris MD (10:23 08/15/2016)] [Electronically locked/signed by Khushbu Thomas R.N. (08:34 08/13/2016)]
--- NOTE | 2016-08-15 10:23 | ED MED RECONCILIATION SUMMARY ---
Patient: LORNE MOLINA Medication Reconciliation Report [facility] VisitID: [id number] [address] [place] [address] 65y, M Registration Date/Time: 08/12/2016 Weight: 81.6 kg Height/Length: 74 in. BMI: 23.1 ALLERGIES: No Known Drug Allergy The patient's Home Medications are listed below: NONE. The source(s) of the original Home Medication information: Not obtained. The following Medications were given to the patient in the Emergency Department: Ativan [IM] IM 2 mg, administered: 08/12/2016 8:03:00 PM TDAP [IM] IM 0.5 mL, administered: 08/13/2016 8:13:00 AM The following Medications were prescribed to the patient: None.
--- NOTE | 2016-08-15 10:23 | ED MAR SUMMARY ---
..... Medication Administration Record [facility] [address] [place] [address] Patient: LORNE MOLINA Visit ID: [id number] 65y, M Weight: 81.6 kg Height/Length: 74 in BMI: 23.1 ALLERGIES: No Known Drug Allergy Given 20:03 08/12/2016 Destini Bhandari RRamona Medication Administered: ATIVAN [IM] (LORAZEPAM), Dose: 2 mg IM. Medication Ordered: Ativan IM 2 mg (NOW). Given 08:13 08/13/2016 Khushbu Thomas RMarlinNMarlin Medication Administered: TDAP [IM], Dose: 0.5 mL IM. Medication Ordered: Tdap IM 0.5 mL (NOW).
--- NOTE | 2016-08-15 10:23 | ED MAR SUMMARY ---
..... Medication Administration Record [facility] [address] [place] [address] Patient: LORNE MOLINA Visit ID: [id number] 65y, M Weight: 81.6 kg Height/Length: 74 in BMI: 23.1 ALLERGIES: No Known Drug Allergy Given 20:03 08/12/2016 Destini Bhandari RRamona Medication Administered: ATIVAN [IM] (LORAZEPAM), Dose: 2 mg IM. Medication Ordered: Ativan IM 2 mg (NOW). Given 08:13 08/13/2016 Khushbu Thomas RMarlinNMarlin Medication Administered: TDAP [IM], Dose: 0.5 mL IM. Medication Ordered: Tdap IM 0.5 mL (NOW).
--- NOTE | 2016-08-15 10:23 | ED MED RECONCILIATION SUMMARY ---
Patient: LORNE MOLINA Medication Reconciliation Report [facility] VisitID: [id number] [address] [place] [address] 65y, M Registration Date/Time: 08/12/2016 Weight: 81.6 kg Height/Length: 74 in. BMI: 23.1 ALLERGIES: No Known Drug Allergy The patient's Home Medications are listed below: NONE. The source(s) of the original Home Medication information: Not obtained. The following Medications were given to the patient in the Emergency Department: Ativan [IM] IM 2 mg, administered: 08/12/2016 8:03:00 PM TDAP [IM] IM 0.5 mL, administered: 08/13/2016 8:13:00 AM The following Medications were prescribed to the patient: None.
--- NOTE | 2016-08-15 10:23 | ED DISCHARGE INSTRUCTIONS ---
Patient: LORNE MOLINA General Instructions [facility] VisitID: [id number] [place] [place] [address] 65y, M Registration Date/Time: 08/12/2016 Alcohol intoxication with alcohol dependence. Minor closed head injury. Multiple superficial abrasions. INSTRUCTIONS Protect wound and keep wound area clean. You may wash wounds briefly, then dry. No driving or operating machinery. No dietary restrictions. (PLE[facility] Warnings: HEAD INJURY PRECAUTIONS: An observer must check on the patient frequently for the next 24 hours to confirm that the patient responds as expected, is not confused, has no new weakness or numbness, and has no other problems. INFECTION: Watch for signs of infection (increasing heat and redness, pus-like drainage, swelling, or increased pain). Return or see your doctor if these signs occur. GENERAL WARNINGS: Return or contact your physician immediately if your condition worsens or changes unexpectedly, if not improving as expected, or if other problems arise. Specifically return if vomiting or fever. ADDITIONAL INFORMATION Head Injury, No Wake-Up (Adult) You have had a head injury. It does not appear serious at this time. Symptoms of a more serious problem (concussion, bruising, or bleeding in the brain) may appear later. Therefore, watch for the WARNING SIGNS listed below. Home Care: Your healthcare provider will tell you whether its okay to drive. If so, you can drive yourself home. For the next day or so, be careful when driving or using heavy machinery until you are sure you have no delayed symptoms. During the next 24 hours someone must stay with you to check for the signs below. It is not necessary to stay awake or be awakened during the night. If you have swelling of the face or scalp, apply an ice pack (ice cubes in a plastic bag, wrapped in a towel) for 20 minutes. Do this every 1-2 hours until the swelling starts to go down. Do not use aspirin or ibuprofen (Motrin, Advil) after a head injury.You may use acetaminophen (Tylenol)to control pain, unless another pain medicine was prescribed. [NOTE: If you have chronic liver or kidney disease or ever had a stomach ulcer or GI bleeding, talk with your doctor before using these medicines.] For the next 24 hours: Do not take alcohol, sedatives or medicines that make you sleepy. Avoid strenuous activities. No lifting or straining. If you have had any symptoms of a concussion today (nausea, vomiting, dizziness, confusion, headache, memory loss or if you were knocked out), do not return to sports or any activity that could result in another head injury until all symptoms are gone and you have been cleared by your doctor. A second head injury before fully recovering from the first one can lead to serious brain injury. Follow Up with your doctor if symptoms are not improving after 24 hours, or as directed. [NOTE: A radiologist will review any X-rays or CT scans that were taken. We will notify you of any new findings that may affect your care.] Get Prompt Medical Attention if any of the followingWARNING SIGNS occur: Repeated vomiting Severe or worsening headache or dizziness Unusual drowsiness, or unable to awaken as usual Confusion or change in behavior or speech, memory loss, blurred vision Convulsion (seizure) Increasing scalp or face swelling Redness, warmth or pus from the swollen area Fluid drainage or bleeding from the nose or ears You have been given the following additional information: HEAD INJURY, No Wake-Up (Adult) No driving or operating machinery. (Electronically signed by Aiden Harris MD 08/15/2016 10:23)
== END 2016-08-13 08:30 | disposition home or self-care (01) ==
LOC: ED SRH 19:23
DX: S09.90XA Unspecified injury of head, initial encounter (principal); F10.221 Alcohol dependence with intoxication delirium; W01.198A Fall on same level from slipping, tripping and stumbling with subsequent striking against other object, initial encounter; Y93.9 Activity, unspecified; Y92.410 Unspecified street and highway as the place of occurrence of the external cause; Y99.8 Other external cause status
CPT/HCPCS: 90100; 92010; 92235; 95059

== ENCOUNTER 2016-08-13 17:47 | Emergency (ER) | payer SELFPAY ==
--- NOTE | 2016-08-14 09:37 | ED CLINICAL REPORT ---
Clinical Report - Physicians/Mid Levels [facility] [address] [place] [address] 08/13/2016 17:55 Patient: LORNE MOLINA Time Seen: 18:06; initial patient contact. Arrived- By ambulance. Historian- patient and EMS personnel. pt was delivered to the ER by the [place] [facility]/police for an involuntary evaluation. pt has been found to be a vulnerable elder adult and the community is concerned for his safety and inabilty to make decisions for himself. CPT: ER phys charges level 5 (#[id number]). HISTORY OF PRESENT ILLNESS Chief Complaint: INTOXICATED and BIZARRE BEHAVIOR. ; had been found laying in the street earlier this week. Wants to stop drinking. Wants to enter detox program. Unknown as to when symptoms started. Duration of substance abuse- 12 years. Substances abused: Alcohol. Last drink less than 12 hours ago. No fever, chills, nausea, vomiting or diarrhea. No abdominal pain or tremors. He has been confused and depressed and had delusions. The symptoms are described as mild. No injuries noted. No recent fall. Not assaulted. Similar symptoms previously: Many times. Recent medical care: The patient was seen recently at this facility in the emergency department. REVIEW OF SYSTEMS No sweats, headache, dizziness, sore throat or cough. No difficulty breathing, skin abscess or joint pain. He has had difficulty walking. All systems otherwise negative, except as recorded above. PAST HISTORY See nurses notes. Longstanding history of alcoholism. Drinks a six pack of beer (12 years). Psychiatric problems. Problems: Substance Abuse [Active]. Abrasion(s). Alcoholism. Emphysema. Alcohol Intoxication. Contusion. Medications: None. Allergies: None. SOCIAL HISTORY Regular heavy alcohol use; consumes four beers a day. Last drink was 4 hours ago. Patient is a longstanding alcoholic. Under the influence in E.D. FAMILY HISTORY Negative. ADDITIONAL NOTES The nursing notes have been reviewed with agreement regarding the chief complaint, HPI, ROS, PMH and patient medications and allergies. PHYSICAL EXAM Vital Signs: 08/13/2016 18:27 BP: 123/75. HR: 91. RR: 16. O2 saturation: 98%. Temp: 97.9 F. Have been reviewed. Appearance: Alert. Oriented X3. No acute distress. Head: Head atraumatic. Eyes: Pupils equal, round and reactive to light. ENT: Normal ENT inspection. Airway intact. Moist mucous membranes. Pharynx normal. Neck: Normal inspection. Neck supple. CVS: Normal heart rate and rhythm. Heart sounds normal. Pulses normal. Respiratory: No respiratory distress. Breath sounds normal. Abdomen: Soft and nontender. No organomegaly. Back: Normal inspection. Skin: Skin warm and dry. Normal skin color. No rash. Normal skin turgor. Extremities: Extremities exhibit normal ROM. No lower extremity edema. Neuro: Alert. Abnormal verbal response (inappropriate). No cerebellar findings. No motor deficit. No sensory deficit. Psych: The patient exhibits altered thought processes, verbalized as circumstantial thoughts. No apparent hallucinations or delusions. Denies suicidal thoughts. Insight and judgement normal. (became beligerent with repeatedly being asked to go back to his room, he left multiple times despite security and nurses urging him to return to his exam room, necessitating placement in room 16 .). LABS, X-RAYS, AND EKG Laboratory Tests: CBC w Diff: (ROXANNE: 08/13/2016 19:33) ( MsgRcvd 08/13/2016 19:59) Final results Test Result Flag Units (Reference) WHITE BLOOD COUNT 16.8 # H K/uL (4.5-11.5) RED BLOOD COUNT 4.93 M/uL (4.50-5.90) HEMOGLOBIN 14.8 gm/dL (13.5-17.5) HEMATOCRIT 44.7 % (41.0-53.0) MEAN CELL VOLUME 91 fL (80-100) MEAN CORPUSCULAR HGB 30 pg (26-34) MEAN CORPUSCULAR HGB CONC 33 g/dL (31-37) RED CELL DISTRIBUTION WIDTH 15.6 H % (11.6-14.8) PLATELET COUNT 246 K/uL (150-400) NEUTROPHIL % 80.1 H % (50-75) LYMPH % 9.3 L % (25-40) MONO % 9.8 % (3-14) EOSINOPHIL % 0.5 % (0-4) BASOPHIL % 0.3 % (0-2) Urine Drug Screen: (ROXANNE: 08/13/2016 19:33) ( MsgRcvd 08/13/2016 20:17) Final results Test Result Flag Units (Reference) AMPHETAMINE/METHAMPHETAMINE NEGATIVE (NEGATIVE) BARBITURATE NEGATIVE (NEGATIVE) BENZODIAZEPINE NEGATIVE (NEGATIVE) CANNABINOID NEGATIVE (NEGATIVE) COCAINE NEGATIVE (NEGATIVE) ECSTASY NEGATIVE (NEGATIVE) METHADONE NEGATIVE (NEGATIVE) OPIATE NEGATIVE (NEGATIVE) The urine drug screen is a qualitative screening test fordrug overdose and abuse. All screen results should beconsidered as presumptive.Drugs screened for are as follows:BenzodiazepinesCocaineAmphetamines/MetamphetaminesTHC (Tetrahydrocannabinol)OpiatesBarbituratesEcstasyMethadonePositive results are unconfirmed. For confirmation, notifythe lab for the specimen to be sent to the reference lab.All confirmations must be performed by a differentmethodology.The ingestion of natural herbal and plant productscontaining Ephedra/Ephedra metabolites can produce in urineone or more substances capable of cross reacting withamphetamine/methamphetamine immunoassays. These testsprovide a preliminary result only. A more specificalternative chemical method must be used to obtain aconfirmed analytical result. CMP: (ROXANNE: 08/13/2016 19:33) ( MsgRcvd 08/13/2016 20:31) Final results Test Result Flag Units (Reference) GLUCOSE 113 H mg/dL (70-110) BUN 8 mg/dL (7-18) CREATININE 0.8 mg/dL (0.6-1.3) Estimated GFR >60 mL/min Estimated GFR- >60 mL/min Note: Persistent reduction over 3 months in eGFR<60 mL/min/1.73 m2 defines CKD. Patients with eGFR values>=60 mL/min/1.73 m2 may also have CKD if evidence ofpersistent proteinuria. Additional information may be foundat [email or web address]. SODIUM 136 mmol/L (136-145) POTASSIUM 3.8 mmol/L (3.5-5.1) CHLORIDE 100 mmol/L (98-107) CARBON DIOXIDE 26 mmol/L (21-32) CALCIUM 8.4 L mg/dL (8.5-10.1) TOTAL PROTEIN 7.7 g/dL (6.4-8.2) ALBUMIN 3.8 g/dL (3.3-5.0) BILIRUBIN, TOTAL 0.7 mg/dL (0.0-1.0) ALKALINE PHOSPHATASE 98 U/L (46-116) AST (SGOT) 20 U/L (15-37) ALT (SGPT) 25 U/L (12-78) ETHYL ALCOHOL 191 H mg/dL (3-10) THYROID STIMULATING HORMONE 1.283 uIU/mL (0.30-3.74) . PROGRESS AND PROCEDURES Course of Care: pt was brought in by the [place] police and felt he was a risk to himself and also was possibly being taken advantage of and needs possible protective custody, is intoxicated, has not prison/home, pt states his truck was impounded, and he used to live in that...now is staying at a local hotel. he states he has been drinking coors beer, denies drugs, occasionally smokes a cigarette, and typically sleeps by the bike racks in [place], [place]. 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 retired in 1999, began drinking in 2004 after 20 years sobriety. states he is bored, has no family, does state he is NOT suicidal. He did state he wants to stop drinking. pt has been in the emergency room 3 different times this week for same. he was given 2 mg IM ativan due to his lack of cooperation and agitation and he proceeded to sleep. IV was placed and fluids started, discussed the case with cdp, who can't talk to him if his blood alcohol level is over a .1. will attempt to sober him up in order to facilitate an admission for detox. PAT team hear to evaluate the patient as his ETOH level dropped to 62. She says she cannot talk to him as he is too somnolent from the ativan. Will need to observe until more alert. 08:17 08/14/16. Pt awake, alert and oriented. He denies being suicidal but admits that he tripped and fell into the street. Was having a hard time getting up because he was so intoxicated with alcohol. He wishes to eat breakfast, get the price out and try to ambulate. He would like to be discharged from the ER. Pt is here for 3rd visit in 3 days , all associated with alcohol intoxication and falls. Discussed risk of serious injury to head , extremities and internal organs. Pt has been given Niko Niko info but does not want to pursue this. States he has no intention on stopping the alcohol or find prison. Discussed that if he returns in the same condition that he may have to be detained against his will as a danger to self. Patient is stable. Symptoms better. Patient/family counseled. Disposition: Discharged. Condition: stable and improved. CLINICAL IMPRESSION Contusion to the scalp and head. Fall on same level by stumbling. Chronic substance abuse- alcohol with intoxication. INSTRUCTIONS Protect wound and keep wound area clean. Change dressing daily. Keep wounds dry. You may wash wounds briefly, then dry. Apply neosporin daily. Stay with responsible adult family member (or other responsible adult). No alcohol. ([facility]). Warnings: Further evaluation is necessary. SEDATIVE MEDICATION: You were given sedative medication during your visit. Do not drive or operate dangerous machinery. GENERAL WARNINGS: Return or contact your physician immediately if your condition worsens or changes unexpectedly, if not improving as expected, or if other problems arise. Understanding of the discharge instructions verbalized by patient. Follow-up with: [facility], , , [address], , [place], [id number] Follow up in five days. Call for an appointment. (Electronically signed by Jeremy Kenny MD 08/16/2016 21:30)
--- NOTE | 2016-08-14 09:37 | ED ORDER SUMMARY ---
..... Patient: LORNE MOLINA OrderSheet [facility] VisitID: [id number] [address] [place] [address] 65y, M Registration Date/Time: 08/13/2016 ORDER SHEET Weight: 81.6 kg (stated) Allergies: None GENERAL ORDERS: CBC w Diff Urgent (19:24 08/13/2016 ABlanchette PA-C) (Ack 19:30 AMcQuoid ER Tech1) (19:53 KKnebel R.N.) CMP Urgent (19:24 08/13/2016 ABlanchette PA-C) (Ack 19:30 AMcQuoid ER Tech1) (19:53 KKnebel R.N.) TSH Urgent (19:24 08/13/2016 ABlanchette PA-C) (Ack 19:30 AMcQuoid ER Tech1) (19:53 KKnebel R.N.) Ethyl Alcohol Urgent (19:24 08/13/2016 ABlanchette PA-C) (Ack 19:30 AMcQuoid ER Tech1) (19:53 KKnebel R.N.) Urine Drug Screen Urgent (19:24 08/13/2016 ABlanchette PA-C) (Ack 19:30 AMcQuoid ER Tech1) (19:53 KKnebel R.N.) Samaniego Catheter (19:30 08/13/2016 ABlanchette PA-C) (19:53 KKnebel R.N.) UA-Culture if indicated Urgent (22:09 08/13/2016 ABlanchette PA-C) (Ack 22:12 AMcQuoid ER Tech1) (22:12 AMcQuoid ER Tech1) Ethyl Alcohol Urgent (23:47 08/13/2016 HSoule verbal order read back to ABlanchette PA-C) (23:59 AMcQuoid ER Tech1) MEDICATION ORDERS: Acetaminophen PO 650 mg (NOW) (19:13 08/13/2016 MaryDeElena R.N. verbal order read back to ABlanchette PA-C) (19:28 KKnebel R.N.) Ativan IM 2 mg (HIGH ALERT MEDICATION, NOW) (19:16 08/13/2016 ABlanchette PA-C) (19:28 KKnebel R.N.) IV FLUIDS: IV NS with Normal Saline 1 Liter: initial bolus 1000 mL (1000 mL/hr), then none - for X1 (NOW) (23:47 08/13/2016 HSoule verbal order read back to Robert BATES) (23:47 ) ORDER SHEET NOTES: [Electronically signed by Kaitlynn Arechiga R.N. (14:09 08/14/2016)] [Electronically signed by Jeremy Kenny MD (21:30 08/16/2016)] [Electronically locked/signed by Kaitlynn Arechiga R.N. (14:09 08/14/2016)]
--- NOTE | 2016-08-14 09:37 | ED NURSING NOTES ---
Clinical Report - Nurses [facility] [place] [place] [address] 08/13/2016 17:55 Patient: LORNE MOLINA TRIAGE Triage time 18:Aug 13 2016. Acuity: LEVEL 3. Chief Complaint: (ETOH). Alert. No acute distress. SEPSIS SCREEN: Sepsis Screen. Negative (no infection suspected/documented). ANGELA COMA SCORE: Angela Coma Scale: 14- eyes open spontaneously (4); best verbal response- disoriented (4); best motor response- obeys commands (6). --18:30 Destini Bhandari R.N. 18:27 08/13/16. BP: 123/75. HR: 91. RR: 16. O2 saturation: 98%. Temp: 97.9 F. --18:30 Destini Bhandari R.N. Weight: 81.6 kg stated. Height/Length: 70 inches Per Patient. BMI: 25.8. --18:29 Destini Bhandari R.N. Medications None. --18:27 Destini Bhandari R.N. Allergies None. --18:27 Destini Bhandari R.N. History Arrived by EMS. Historian: patient. This started today. Treatment OUTREACH ANALYST: None. PAST MEDICAL HX: Immunizations: status is unknown. SOCIAL HX: Current every day heavy tobacco smoker (cigarette)- 1 pack per day. Heavy alcohol use; consumes beer. No drug use. No infectious disease exposure. SELF HARM ASSESSMENT: A self harm assessment was performed. The patient answered "no" to the question "Do you have thoughts of harming or killing yourself?". FALL RISK ASSESSMENT: Fall risk assessment completed. No fall risk identified. NUTRITIONAL RISK ASSESSMENT: The nutritional risk assessment revealed no deficiencies. FUNCTIONAL ASSESSMENT: Functional assessment: no impairments noted. LEARNING NEEDS ASSESSMENT: The learning needs assessment revealed no barriers. SKIN INTEGRITY ASSESSMENT: Skin integrity risk assessment completed. No skin integrity risk identified. --18:30 Desitni Bhandari R.N. PROBLEMS: Substance Abuse [Active]. --18: Destini Bhandari R.N. Abrasion(s). Alcoholism. Emphysema. Alcohol Intoxication. Contusion. Head Injury. Fall. --18: Destini Bhandari R.N. ADDITIONAL SURGERIES: GI surgery to remove a tumor. --18: Destini Bhandari R.N. Interventions ID band on patient. To room. --18:30 Destini Bhandari R.N. PHYSICAL ASSESSMENT GENERAL / NEURO / PSYCH: Alert. Appears in no acute distress. RESPIRATORY: Respirations not labored. CVS: Capillary refill less than 2 seconds. GI / : Abdomen soft and nontender. SKIN: Skin is warm and dry. --18: Destini Bhandari R.N. NURSING PROGRESS NOTES Head of bed elevated. Patient identifiers checked. Call light placed in reach. Side rails up. Bed placed in lowest position. Brakes of bed on. --18: Destini Bhandari R.N. 08/13/2016 Ativan (LORazepam) IM 2 mg given. Given in the right anterior lateral thigh. Allergies verified, confirmed 5 rights and sedative warning given to the patient. --: Destini Bhandari R.N. 08/13/2016 Acetaminophen (APAP) PO Tablets 650 mg given. Allergies verified and confirmed 5 rights. --: Destini Bhandari R.N. Patient ID band checked for patient name and birthdate: patient confirmed. Blood samples drawn from the right antecubital space with Vacutainer 21g by nurse ; labeled in presence of the patient and sent to lab: yacny set. --19:53 Destini Bhandari R.N. 14 fr price catheter placed. During procedure hand hygiene observed and sterile equipment and aseptic technique used. Return of 50 mL yellow-colored clear urine; attached to bedside drainage bag positioned below the bladder and secured with stabilization device. He tolerated procedure well (altered mental status). --19:55 Destini Bhandari R.N. The patient is sleeping. SKIN: Skin is warm and dry. --:28 Destini Bhandari R.N. 22:24 08/13/16. BP: 106/74. HR: 80. RR: 16. O2 saturation: 97%. --22:28 Destini Bhandari R.N. Care transferred and report given (Haydee CAMPUZANO). --23:15 Destini Bhandari R.N. 23:46 08/13/2016 Site #1 started via IV in the right wrist with an 20g angiocath; one attempt. Blood drawn: rainbow set. Labeled in the presence of the patient and sent to the lab. Saline lock flushed with 10 mL saline. --23:46 Rebecca Solomon 23:47 08/13/2016 Started bag #1 1000 mL IV Fluids IV NS (Saline); at 1000 mL/hr over 1 hour(s) via site #1 via IV pump. Allergies verified and confirmed 5 rights. IV patency established. IV site checked: no pain, redness, or swelling. IV flushed thoroughly pre- and post-medication administration. --23:47 Rebecca Solomon The patient is sleeping. --23:48 Rebecca Solomon 23:46 08/13/16. BP: 131/87. HR: 79. RR: 20. O2 saturation: 97% on room air. Temp: 98.4 F (oral). --23:48 Rebecca Solomon ( PAT team at bedside for assessment. Patient has no complaints at this time. Patient given PO food and fluids.). --00:45 Rebecca Solomon ( Patient unable to be assessed as he is too sleepy and not able to hold conversation with PAT team.). --00:49 Rebecca Solomon The patient is sleeping. RESPIRATORY: No respiratory distress. SKIN: Skin is warm and dry. Skin color within normal limits. --01:52 Rebecca Solomon 00:30 08/14/2016 IV Fluids IV NS Discontinued: bag #1 completed. Total amount infused: 1000 mL. IV patency established. IV site checked: no pain, redness, or swelling. IV flushed thoroughly. --01:52 Rebecca Solomon ( Patient sleeping. 500 ml of urine emptied from Price bag. Breakfast ordered for patient.). --02:35 Rebecca Solomon ( Patient awake, calm and cooperative. Given PO fluids and encouraged to drink.). --05:47 Lane Solomonnah 05:45 08/14/16. BP: 115/64. HR: 80. RR: 20. O2 saturation: 98% on room air. --05:47 Rebecca Solomon Care transferred and report given (Kaitlynn RN). --07:20 JuanitoRebecca 07:49 08/14/16. BP: 148/87. HR: 85. RR: 18. O2 saturation: 96%. Temp: 100.1 F. --07:50 VernonMaxine. DISPOSITION / DISCHARGE 09:25 08/14/2016 Site #1 removed upon discharge. Catheter intact. Manual pressure and bandaid applied. --09:25 Khushbu Thomas R.N. Departure time: 09:50 Aug 14 2016. Condition at departure: improved and stable. ( Mark was calm and cooperative at discharge. Mark verbalized understanding of discharge instructions.). No learning barriers present. Discharge instructions provided and reviewed with the patient. Patient verbalized understanding. Written instructions provided in Portuguese. The patient was discharged by the physician. He was discharged home. He left the Emergency Department ambulatory. --14:08 Kaitlynn Arechiga R.N. 14:05 08/14/16. BP: 109/62. HR: 98. RR: 18. O2 saturation: 98% on room air. Temp: 98 F (oral). Pain level now: 0/10. --14:08 Kaitlynn Arechiga R.N. Locked/Released at 08/14/2016 14:09 by Kaitlynn Arechiga R.N.
--- NOTE | 2016-08-14 09:37 | ED CLINICAL REPORT ---
Clinical Report - Physicians/Mid Levels [facility] [address] [place] [address] 08/13/2016 17:55 Patient: LORNE MOLINA Time Seen: 18:06; initial patient contact. Arrived- By ambulance. Historian- patient and EMS personnel. pt was delivered to the ER by the [place] [facility]/police for an involuntary evaluation. pt has been found to be a vulnerable elder adult and the community is concerned for his safety and inabilty to make decisions for himself. CPT: ER phys charges level 5 (#[id number]). HISTORY OF PRESENT ILLNESS Chief Complaint: INTOXICATED and BIZARRE BEHAVIOR. ; had been found laying in the street earlier this week. Wants to stop drinking. Wants to enter detox program. Unknown as to when symptoms started. Duration of substance abuse- 12 years. Substances abused: Alcohol. Last drink less than 12 hours ago. No fever, chills, nausea, vomiting or diarrhea. No abdominal pain or tremors. He has been confused and depressed and had delusions. The symptoms are described as mild. No injuries noted. No recent fall. Not assaulted. Similar symptoms previously: Many times. Recent medical care: The patient was seen recently at this facility in the emergency department. REVIEW OF SYSTEMS No sweats, headache, dizziness, sore throat or cough. No difficulty breathing, skin abscess or joint pain. He has had difficulty walking. All systems otherwise negative, except as recorded above. PAST HISTORY See nurses notes. Longstanding history of alcoholism. Drinks a six pack of beer (12 years). Psychiatric problems. Problems: Substance Abuse [Active]. Abrasion(s). Alcoholism. Emphysema. Alcohol Intoxication. Contusion. Medications: None. Allergies: None. SOCIAL HISTORY Regular heavy alcohol use; consumes four beers a day. Last drink was 4 hours ago. Patient is a longstanding alcoholic. Under the influence in E.D. FAMILY HISTORY Negative. ADDITIONAL NOTES The nursing notes have been reviewed with agreement regarding the chief complaint, HPI, ROS, PMH and patient medications and allergies. PHYSICAL EXAM Vital Signs: 08/13/2016 18:27 BP: 123/75. HR: 91. RR: 16. O2 saturation: 98%. Temp: 97.9 F. Have been reviewed. Appearance: Alert. Oriented X3. No acute distress. Head: Head atraumatic. Eyes: Pupils equal, round and reactive to light. ENT: Normal ENT inspection. Airway intact. Moist mucous membranes. Pharynx normal. Neck: Normal inspection. Neck supple. CVS: Normal heart rate and rhythm. Heart sounds normal. Pulses normal. Respiratory: No respiratory distress. Breath sounds normal. Abdomen: Soft and nontender. No organomegaly. Back: Normal inspection. Skin: Skin warm and dry. Normal skin color. No rash. Normal skin turgor. Extremities: Extremities exhibit normal ROM. No lower extremity edema. Neuro: Alert. Abnormal verbal response (inappropriate). No cerebellar findings. No motor deficit. No sensory deficit. Psych: The patient exhibits altered thought processes, verbalized as circumstantial thoughts. No apparent hallucinations or delusions. Denies suicidal thoughts. Insight and judgement normal. (became beligerent with repeatedly being asked to go back to his room, he left multiple times despite security and nurses urging him to return to his exam room, necessitating placement in room 16 .). LABS, X-RAYS, AND EKG Laboratory Tests: CBC w Diff: (ROXANNE: 08/13/2016 19:33) ( MsgRcvd 08/13/2016 19:59) Final results Test Result Flag Units (Reference) WHITE BLOOD COUNT 16.8 # H K/uL (4.5-11.5) RED BLOOD COUNT 4.93 M/uL (4.50-5.90) HEMOGLOBIN 14.8 gm/dL (13.5-17.5) HEMATOCRIT 44.7 % (41.0-53.0) MEAN CELL VOLUME 91 fL (80-100) MEAN CORPUSCULAR HGB 30 pg (26-34) MEAN CORPUSCULAR HGB CONC 33 g/dL (31-37) RED CELL DISTRIBUTION WIDTH 15.6 H % (11.6-14.8) PLATELET COUNT 246 K/uL (150-400) NEUTROPHIL % 80.1 H % (50-75) LYMPH % 9.3 L % (25-40) MONO % 9.8 % (3-14) EOSINOPHIL % 0.5 % (0-4) BASOPHIL % 0.3 % (0-2) Urine Drug Screen: (ROXANNE: 08/13/2016 19:33) ( MsgRcvd 08/13/2016 20:17) Final results Test Result Flag Units (Reference) AMPHETAMINE/METHAMPHETAMINE NEGATIVE (NEGATIVE) BARBITURATE NEGATIVE (NEGATIVE) BENZODIAZEPINE NEGATIVE (NEGATIVE) CANNABINOID NEGATIVE (NEGATIVE) COCAINE NEGATIVE (NEGATIVE) ECSTASY NEGATIVE (NEGATIVE) METHADONE NEGATIVE (NEGATIVE) OPIATE NEGATIVE (NEGATIVE) The urine drug screen is a qualitative screening test fordrug overdose and abuse. All screen results should beconsidered as presumptive.Drugs screened for are as follows:BenzodiazepinesCocaineAmphetamines/MetamphetaminesTHC (Tetrahydrocannabinol)OpiatesBarbituratesEcstasyMethadonePositive results are unconfirmed. For confirmation, notifythe lab for the specimen to be sent to the reference lab.All confirmations must be performed by a differentmethodology.The ingestion of natural herbal and plant productscontaining Ephedra/Ephedra metabolites can produce in urineone or more substances capable of cross reacting withamphetamine/methamphetamine immunoassays. These testsprovide a preliminary result only. A more specificalternative chemical method must be used to obtain aconfirmed analytical result. CMP: (ROXANNE: 08/13/2016 19:33) ( MsgRcvd 08/13/2016 20:31) Final results Test Result Flag Units (Reference) GLUCOSE 113 H mg/dL (70-110) BUN 8 mg/dL (7-18) CREATININE 0.8 mg/dL (0.6-1.3) Estimated GFR >60 mL/min Estimated GFR- >60 mL/min Note: Persistent reduction over 3 months in eGFR<60 mL/min/1.73 m2 defines CKD. Patients with eGFR values>=60 mL/min/1.73 m2 may also have CKD if evidence ofpersistent proteinuria. Additional information may be foundat www.kidney.org. SODIUM 136 mmol/L (136-145) POTASSIUM 3.8 mmol/L (3.5-5.1) CHLORIDE 100 mmol/L (98-107) CARBON DIOXIDE 26 mmol/L (21-32) CALCIUM 8.4 L mg/dL (8.5-10.1) TOTAL PROTEIN 7.7 g/dL (6.4-8.2) ALBUMIN 3.8 g/dL (3.3-5.0) BILIRUBIN, TOTAL 0.7 mg/dL (0.0-1.0) ALKALINE PHOSPHATASE 98 U/L (46-116) AST (SGOT) 20 U/L (15-37) ALT (SGPT) 25 U/L (12-78) ETHYL ALCOHOL 191 H mg/dL (3-10) THYROID STIMULATING HORMONE 1.283 uIU/mL (0.30-3.74) . PROGRESS AND PROCEDURES Course of Care: pt was brought in by the [place] police and felt he was a risk to himself and also was possibly being taken advantage of and needs possible protective custody, is intoxicated, has not fpc/home, pt states his truck was impounded, and he used to live in that...now is staying at a local hotel. he states he has been drinking coors beer, denies drugs, occasionally smokes a cigarette, and typically sleeps by the bike racks in [place], [place]. 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 retired in 1999, began drinking in 2004 after 20 years sobriety. states he is bored, has no family, does state he is NOT suicidal. He did state he wants to stop drinking. pt has been in the emergency room 3 different times this week for same. he was given 2 mg IM ativan due to his lack of cooperation and agitation and he proceeded to sleep. IV was placed and fluids started, discussed the case with cdp, who can't talk to him if his blood alcohol level is over a .1. will attempt to sober him up in order to facilitate an admission for detox. PAT team hear to evaluate the patient as his ETOH level dropped to 62. She says she cannot talk to him as he is too somnolent from the ativan. Will need to observe until more alert. 08:17 08/14/16. Pt awake, alert and oriented. He denies being suicidal but admits that he tripped and fell into the street. Was having a hard time getting up because he was so intoxicated with alcohol. He wishes to eat breakfast, get the price out and try to ambulate. He would like to be discharged from the ER. Pt is here for 3rd visit in 3 days , all associated with alcohol intoxication and falls. Discussed risk of serious injury to head , extremities and internal organs. Pt has been given [employer] info but does not want to pursue this. States he has no intention on stopping the alcohol or find fpc. Discussed that if he returns in the same condition that he may have to be detained against his will as a danger to self. Patient is stable. Symptoms better. Patient/family counseled. Disposition: Discharged. Condition: stable and improved. CLINICAL IMPRESSION Contusion to the scalp and head. Fall on same level by stumbling. Chronic substance abuse- alcohol with intoxication. INSTRUCTIONS Protect wound and keep wound area clean. Change dressing daily. Keep wounds dry. You may wash wounds briefly, then dry. Apply neosporin daily. Stay with responsible adult family member (or other responsible adult). No alcohol. ([facility] Warnings: Further evaluation is necessary. SEDATIVE MEDICATION: You were given sedative medication during your visit. Do not drive or operate dangerous machinery. GENERAL WARNINGS: Return or contact your physician immediately if your condition worsens or changes unexpectedly, if not improving as expected, or if other problems arise. Understanding of the discharge instructions verbalized by patient. Follow-up with: [facility], , , [address], , [place], [address] Follow up in five days. Call for an appointment. (Electronically signed by Jeremy Kenny MD 08/16/2016 21:30)
--- NOTE | 2016-08-14 09:37 | ED ORDER SUMMARY ---
..... Patient: LORNE MOLINA OrderSheet [facility] VisitID: [id number] [address] [place] [address] 65y, M Registration Date/Time: 08/13/2016 ORDER SHEET Weight: 81.6 kg (stated) Allergies: None GENERAL ORDERS: CBC w Diff Urgent (19:24 08/13/2016 ABlanchette PA-C) (Ack 19:30 AMcQuoid ER Tech1) (19:53 KKnebel R.N.) CMP Urgent (19:24 08/13/2016 ABlanchette PA-C) (Ack 19:30 AMcQuoid ER Tech1) (19:53 KKnebel R.N.) TSH Urgent (19:24 08/13/2016 ABlanchette PA-C) (Ack 19:30 AMcQuoid ER Tech1) (19:53 KKnebel R.N.) Ethyl Alcohol Urgent (19:24 08/13/2016 ABlanchette PA-C) (Ack 19:30 AMcQuoid ER Tech1) (19:53 KKnebel R.N.) Urine Drug Screen Urgent (19:24 08/13/2016 ABlanchette PA-C) (Ack 19:30 AMcQuoid ER Tech1) (19:53 KKnebel R.N.) Samaniego Catheter (19:30 08/13/2016 ABlanchette PA-C) (19:53 KKnebel R.N.) UA-Culture if indicated Urgent (22:09 08/13/2016 ABlanchette PA-C) (Ack 22:12 AMcQuoid ER Tech1) (22:12 AMcQuoid ER Tech1) Ethyl Alcohol Urgent (23:47 08/13/2016 HSoule verbal order read back to ABlanchette PA-C) (23:59 AMcQuoid ER Tech1) MEDICATION ORDERS: Acetaminophen PO 650 mg (NOW) (19:13 08/13/2016 MaryDeElena R.N. verbal order read back to ABlanchette PA-C) (19:28 KKnebel R.N.) Ativan IM 2 mg (HIGH ALERT MEDICATION, NOW) (19:16 08/13/2016 ABlanchette PA-C) (19:28 KKnebel R.N.) IV FLUIDS: IV NS with Normal Saline 1 Liter: initial bolus 1000 mL (1000 mL/hr), then none - for X1 (NOW) (23:47 08/13/2016 HSoule verbal order read back to Robert BATES) (23:47 ) ORDER SHEET NOTES: [Electronically signed by Kaitlynn Arechiga R.N. (14:09 08/14/2016)] [Electronically signed by Jeremy Kenny MD (21:30 08/16/2016)] [Electronically locked/signed by Kaitlynn Arechiga R.N. (14:09 08/14/2016)]
--- NOTE | 2016-08-16 21:31 | ED DISCHARGE INSTRUCTIONS ---
Patient: LORNE MOLINA General Instructions [facility] VisitID: [id number] [address] [place] [address] 65y, M Registration Date/Time: 08/13/2016 Contusion to the scalp and head. Fall on same level by stumbling. Chronic substance abuse- alcohol with intoxication. INSTRUCTIONS Protect wound and keep wound area clean. Change dressing daily. Keep wounds dry. You may wash wounds briefly, then dry. Apply neosporin daily. Stay with responsible adult family member (or other responsible adult). No alcohol. (Get to detox Go to [facility] for fdc). Warnings: Further evaluation is necessary. SEDATIVE MEDICATION: You were given sedative medication during your visit. Do not drive or operate dangerous machinery. GENERAL WARNINGS: Return or contact your physician immediately if your condition worsens or changes unexpectedly, if not improving as expected, or if other problems arise. Understanding of the discharge instructions verbalized by patient. Follow-up with: [facility], , , [address], , [place], [address] Follow up in five days. Call for an appointment. ADDITIONAL INFORMATION Contusion,Soft Tissue You have a CONTUSION, which is a bruise with swelling and some bleeding under the skin. There are no broken bones. This injury takes a few days to a few weeks to heal. Home Care: 1) Keep the injured part elevated to reduce pain and swelling. This is especially important during the first 48 hours. 2) Make an ice pack (ice cubes in a plastic bag, wrapped in a towel) and apply for 20 minutes every 1-2 hours the first day. Continue this 3-4 times a day until the pain and swelling goes away. 3) You may use acetaminophen (Tylenol) or ibuprofen (Motrin, Advil) to control pain, unless another pain medicine was prescribed. [ NOTE : If you have chronic liver or kidney disease or ever had a stomach ulcer or GI bleeding, talk with your doctor before using these medicines.] Follow Up with your doctor or this facility if you are not improving within the next THREE days. [NOTE: If X-rays were taken, they will be reviewed by a radiologist. You will be notified of any new findings that may affect your care.] Get Prompt Medical Attention if any of the following occur: -- Pain or swelling increases -- Injured arm or leg becomes cold, blue, numb or tingly -- Redness, warmth or drainage from the skin Mechanical Fall You have had a fall today. It appears that the cause is mechanical. That means that you slipped, tripped or lost your balance. If your fall had been due to fainting or a seizure, further tests would be required. Home Care: Rest today and resume your normal activities when you are feeling back to normal. If you were injured during the fall, follow the advice from your doctor regarding care of your injury. You may use acetaminophen (Tylenol) or ibuprofen (Motrin, Advil) to control pain, unless another pain medicine was prescribed. [NOTE: If you have chronic liver or kidney disease or ever had a stomach ulcer or GI bleeding, talk with your doctor before using these medicines.] Fall Prevention: Was there anything that caused your fall that can be fixed, removed, or replaced? Make your home safe by keeping walkways clear of objects you may trip over. Use non-slip pads under rugs. Do not walk in poorly lit areas. Do not stand on chairs or wobbly ladders. Use caution when reaching overhead or looking upward. This position can cause a loss of balance. Be sure your shoes fit properly, have non-slip bottoms and are in good condition. Be cautious when going up and down curbs, and walking on uneven sidewalks. If your balance is poor, consider using a cane or walker. Stay as active as you can. Balance, flexibility, strength, and endurance all come from exercise. They all play a role in preventing falls. Follow Up with your doctor or as advised by our staff. Get Prompt Medical Attention if any of the following occur: Repeated mechanical falls, or unexplained falls Dizziness, fainting or seizure Severe headache Chest pain or shortness of breath Palpitations (very rapid or very slow or irregular heartbeat) Blood in vomit, stools (black or red color) Weakness of an arm or leg or one side of the face Difficulty with speech or vision Abrasions Abrasions are skin scrapes. Their treatment depends on how large and deep the abrasion is. Home Care: If you were given a bandage, change it once a day. If your bandage sticks to the wound, soak it in warm water until it loosens. Wash the area with soap and water to remove all the cream/ointment. You may do this in a sink, under a tub faucet or shower. Rinse off the soap and pat dry with a clean towel. Reapply cream/ointment according to your doctor's instructions. This will prevent infection and help prevent the bandage from sticking. Cover the wound with a fresh non-stick bandage (Telfa). Repeat steps 1 to 4 daily, or as directed by your doctor. If the bandage becomes wet or dirty, change it as soon as possible. You may use acetaminophen (Tylenol) or ibuprofen (Motrin, Advil) to control pain, unless another pain medicine was prescribed. [ NOTE : If you have chronic liver or kidney disease or ever had a stomach ulcer or GI bleeding, talk with your doctor before using these medicines.] Do not use ibuprofen in children under six months of age. Follow Up with your physician or this facility as directed by our staff. Most skin wounds heal within ten days. However, an infection may occur despite proper treatment. Therefore, look for the early signs of infection listed below. Get Prompt Medical Attention if any of the following occur: Increasing pain in the wound Increasing redness or swelling Pus coming from the wound Fever of 100.4F (38C) or higher, or as directed by your healthcare provider You have been given the following additional information: Contusion, Soft Tissue Fall, Mechanical Abrasion Stay with responsible adult family member (or other responsible adult). (Electronically signed by Jeremy Kenny MD 08/16/2016 21:30)
--- NOTE | 2016-08-16 21:31 | ED MED RECONCILIATION SUMMARY ---
Patient: LORNE MOLINA Medication Reconciliation Report [facility] VisitID: [id number] [address] [place] [address] 65y, M Registration Date/Time: 08/13/2016 Weight: 81.6 kg Height/Length: 70 in. BMI: 25.8 ALLERGIES: None The patient's Home Medications are listed below: NONE. The source(s) of the original Home Medication information: Not obtained. The following Medications were given to the patient in the Emergency Department: Ativan [IM] IM 2 mg, administered: 08/13/2016 7:28:00 PM Acetaminophen [PO] PO 650 mg, administered: 08/13/2016 7:28:00 PM IV NS IV Fluids bolus 0, then 1000 mL/hr, administered: 08/13/2016 11:47:00 PM The following Medications were prescribed to the patient: None.
--- NOTE | 2016-08-16 21:31 | ED MAR SUMMARY ---
..... Medication Administration Record [facility] [address] [place] [address] Patient: LORNE MOLINA Visit ID: [id number] 65y, M Weight: 81.6 kg Height/Length: 70 in BMI: 25.8 ALLERGIES: None Given 19:08/13/2016 Destini Bhandari R.N. Medication Administered: ACETAMINOPHEN [PO] (APAP), Dose: 650 mg Tablets PO. Medication Ordered: Acetaminophen PO 650 mg (NOW). Given 19:08/13/2016 Destini Bhandari R.N. Medication Administered: ATIVAN [IM] (LORAZEPAM), Dose: 2 mg IM. Medication Ordered: Ativan IM 2 mg (HIGH ALERT MEDICATION, NOW). Start 23:47 08/13/2016 Rebecca Solomon,, Stop 00:30 08/14/2016 Rebecca Solomon, Medication Administered: IV NS (SALINE), Dose: IV Fluids over 1 hour(s), Rate: 1000 mL/hr, Dispensed: 1000 mL bag, Site: #1 right wrist. Medication Ordered: IV NS with Normal Saline 1 Liter: initial bolus 1000 mL (1000 mL/hr), then none - for X1 (NOW).
--- NOTE | 2016-08-16 21:31 | ED MED RECONCILIATION SUMMARY ---
Patient: LORNE MOLINA Medication Reconciliation Report [facility] VisitID: [id number] [address] [place] [address] 65y, M Registration Date/Time: 08/13/2016 Weight: 81.6 kg Height/Length: 70 in. BMI: 25.8 ALLERGIES: None The patient's Home Medications are listed below: NONE. The source(s) of the original Home Medication information: Not obtained. The following Medications were given to the patient in the Emergency Department: Ativan [IM] IM 2 mg, administered: 08/13/2016 7:28:00 PM Acetaminophen [PO] PO 650 mg, administered: 08/13/2016 7:28:00 PM IV NS IV Fluids bolus 0, then 1000 mL/hr, administered: 08/13/2016 11:47:00 PM The following Medications were prescribed to the patient: None.
--- NOTE | 2016-08-16 21:31 | ED MAR SUMMARY ---
..... Medication Administration Record [facility] [address] [place] [address] Patient: LORNE MOLINA Visit ID: [id number] 65y, M Weight: 81.6 kg Height/Length: 70 in BMI: 25.8 ALLERGIES: None Given 19:08/13/2016 Destini Bhandari R.N. Medication Administered: ACETAMINOPHEN [PO] (APAP), Dose: 650 mg Tablets PO. Medication Ordered: Acetaminophen PO 650 mg (NOW). Given 19:08/13/2016 Destini Bhandari R.N. Medication Administered: ATIVAN [IM] (LORAZEPAM), Dose: 2 mg IM. Medication Ordered: Ativan IM 2 mg (HIGH ALERT MEDICATION, NOW). Start 23:47 08/13/2016 Rebecca Solomon,, Stop 00:30 08/14/2016 Rebecca Solomon, Medication Administered: IV NS (SALINE), Dose: IV Fluids over 1 hour(s), Rate: 1000 mL/hr, Dispensed: 1000 mL bag, Site: #1 right wrist. Medication Ordered: IV NS with Normal Saline 1 Liter: initial bolus 1000 mL (1000 mL/hr), then none - for X1 (NOW).
== END 2016-08-14 09:50 | disposition home or self-care (01) ==
LOC: ED SRH 17:47
DX: S09.93XA Unspecified injury of face, initial encounter (principal); F10.229 Alcohol dependence with intoxication, unspecified; T14.8 Other injury of unspecified body region; W19.XXXA Unspecified fall, initial encounter; Y92.410 Unspecified street and highway as the place of occurrence of the external cause; Y99.8 Other external cause status; F17.210 Nicotine dependence, cigarettes, uncomplicated
CPT/HCPCS: 90004; 90100; 92010; 92760; 92761; 92762; 92763; 92764; 92765; 92766; 92767; 93140; 95059

== ENCOUNTER 2016-08-17 08:06 | Emergency (ER) | payer OTHER ==
--- NOTE | 2016-08-17 08:45 | ED CLINICAL REPORT ---
Clinical Report - Physicians/Mid Levels [facility] [address] [place] [address] 08/17/2016 8:14 Patient: LRONE MOLINA Time Seen: 08:32; initial patient contact. Arrived- By ambulance. Historian- patient. HISTORY OF PRESENT ILLNESS Chief Complaint: Injury to the left foot. The injury happened about 1 week ago. (blister from wet socks). Occurred on a street. Patient is experiencing mild pain. Patient denies injury to the head or neck. REVIEW OF SYSTEMS The patient complains of pain on weight bearing. No swelling, suspected foreign body or skin laceration. All systems otherwise negative, except as recorded above. PAST HISTORY Substance Abuse. Mental Illness. Abrasion(s). Alcoholism. Emphysema. Alcohol Intoxication. Contusion. Head Injury. Fall. Seizure Syncope Pneumonia Hypotension SURGERIES: GI surgery to remove a tumor. SOCIAL HISTORY Current every day smoker. Heavy alcohol use. Patient is a longstanding alcoholic. ADDITIONAL NOTES The nursing notes have been reviewed. PHYSICAL EXAM Vital Signs: 08/17/2016 08:17 BP: 121/65. HR: 74. RR: 18. O2 saturation: 100%. Temp: 97.8 F. Have been reviewed as normal. Appearance: Alert. Oriented X3. No acute distress. Skin: Skin warm and dry. Extremities: Left foot, plantar aspect: mild tenderness and small abrasion of the middle aspect of the foot. Neurovascular intact distally. No erythema, swelling, laceration, ecchymosis or puncture wound. No foreign body or deformity. No ankle injury. Foot and ankle exam otherwise negative. Extremities otherwise negative. Neuro, Vascular and Tendons: Vascular status intact. Sensation intact. Motor intact. Tendon function intact. Gait: Normal gait. Neuro: Oriented X 3. No motor deficit. No sensory deficit. PROGRESS AND PROCEDURES Disposition: Discharged in good condition. Condition: good. CLINICAL IMPRESSION Single superficial skin avulsion of the left foot. (No repair). No foreign body present. INSTRUCTIONS Protect wound and keep wound area clean. You may wash wounds briefly, then dry. Apply bacitracin twice daily. Your Current Medications: CONTINUE TAKING THE FOLLOWING MEDICATIONS: None*. Follow-up: Screening today revealed the patient's blood pressure to be in the pre-hypertensive range. The patient should follow up with a primary care provider for blood pressure management. Follow-up with: [facility], , , [address], , [place], [address] Follow up in about two days. Call for an appointment. (Electronically signed by Zay Hernandez Dr. 08/17/2016 9:46)
--- NOTE | 2016-08-17 08:45 | ED CLINICAL REPORT ---
Clinical Report - Physicians/Mid Levels [facility] [address] [place] [address] 08/17/2016 8:14 Patient: LORNE MOLINA Time Seen: 08:32; initial patient contact. Arrived- By ambulance. Historian- patient. HISTORY OF PRESENT ILLNESS Chief Complaint: Injury to the left foot. The injury happened about 1 week ago. (blister from wet socks). Occurred on a street. Patient is experiencing mild pain. Patient denies injury to the head or neck. REVIEW OF SYSTEMS The patient complains of pain on weight bearing. No swelling, suspected foreign body or skin laceration. All systems otherwise negative, except as recorded above. PAST HISTORY Substance Abuse. Mental Illness. Abrasion(s). Alcoholism. Emphysema. Alcohol Intoxication. Contusion. Head Injury. Fall. Seizure Syncope Pneumonia Hypotension SURGERIES: GI surgery to remove a tumor. SOCIAL HISTORY Current every day smoker. Heavy alcohol use. Patient is a longstanding alcoholic. ADDITIONAL NOTES The nursing notes have been reviewed. PHYSICAL EXAM Vital Signs: 08/17/2016 08:17 BP: 121/65. HR: 74. RR: 18. O2 saturation: 100%. Temp: 97.8 F. Have been reviewed as normal. Appearance: Alert. Oriented X3. No acute distress. Skin: Skin warm and dry. Extremities: Left foot, plantar aspect: mild tenderness and small abrasion of the middle aspect of the foot. Neurovascular intact distally. No erythema, swelling, laceration, ecchymosis or puncture wound. No foreign body or deformity. No ankle injury. Foot and ankle exam otherwise negative. Extremities otherwise negative. Neuro, Vascular and Tendons: Vascular status intact. Sensation intact. Motor intact. Tendon function intact. Gait: Normal gait. Neuro: Oriented X 3. No motor deficit. No sensory deficit. PROGRESS AND PROCEDURES Disposition: Discharged in good condition. Condition: good. CLINICAL IMPRESSION Single superficial skin avulsion of the left foot. (No repair). No foreign body present. INSTRUCTIONS Protect wound and keep wound area clean. You may wash wounds briefly, then dry. Apply bacitracin twice daily. Your Current Medications: CONTINUE TAKING THE FOLLOWING MEDICATIONS: None*. Follow-up: Screening today revealed the patient's blood pressure to be in the pre-hypertensive range. The patient should follow up with a primary care provider for blood pressure management. Follow-up with: [facility], , , [address], , [place], [address] Follow up in about two days. Call for an appointment. (Electronically signed by Zay Hernandez Dr. 08/17/2016 9:46)
--- NOTE | 2016-08-17 08:45 | ED NURSING NOTES ---
Clinical Report - Nurses [facility] [address] [place] [address] 08/17/2016 8:14 Patient: LORNE MOLINA TRIAGE Triage time 08:17. Acuity: LEVEL 4. Chief Complaint: (FEET HURT). Alert. No acute distress. ANGELA COMA SCORE: Angela Coma Scale: 15- eyes open spontaneously (4); best verbal response- oriented x 4 (5); best motor response- obeys commands (6). --08:24 Loretta Paul R.N. <<STRICKEN ENTRY-- 08:17 08/17/16. BP: 121/65. HR: 174. RR: 18. O2 saturation: 100% on room air. Temp: 97.8 F. Pain level now: cannot qualify. --08:24 Loretta Paul R.N. --END STRIKE>> Wrong Value. correct pulse rate is 74 --08:52 Loretta Paul R.N. 08:17 08/17/16. BP: 121/65. HR: 74. RR: 18. O2 saturation: 100% on room air. Temp: 97.8 F. Pain level now: cannot qualify. --08:53 Loretta Paul R.N. Weight: 81.6 kg stated. Height/Length: 70 inches Per Patient. BMI: 25.8. --08:23 Loretta Paul R.N. Medications None. --08:19 Loretta Paul R.N. Medication/allergy information source: the patient. --08:24 Loretta Paul R.N. Allergies None. --08:19 Loretta Paul R.N. History Arrived by EMS. Historian: EMS and patient. Accompanied by (EMS). Primary physician (none). This is a recurrent problem. ( EMS states he was outside a storage facility, he is homeless and they brought him here for a wellness check, pt asks for food as soon as he rolled in the room). SOCIAL HX: Heavy tobacco smoker- less than 1 pack per day. Heavy alcohol use; consumes beer daily. No drug use. FUNCTIONAL ASSESSMENT: Functional assessment: no impairments noted. Functional assessment performed: independent with the activities of daily living. homeless. FALL RISK ASSESSMENT: Fall risk assessment completed. Risk factors identified include patient impairment of mobility. Fall interventions initiated. Patient placed on stretcher. Side rails up x2. Brakes on Bed in low position. --08:24 Loretta Paul R.N. PROBLEMS: Substance Abuse [Active]. --08:19 Loretta Paul R.N. Substance Abuse. Mental Illness. Abrasion(s). Alcoholism. Emphysema. Alcohol Intoxication. Contusion. Head Injury. Fall. --08:19 Loretta Paul R.N. Seizure [RuleOut]. Syncope [RuleOut]. Pneumonia [RuleOut]. Hypotension [RuleOut]. --08:19 Loretta Paul R.N. ADDITIONAL SURGERIES: GI surgery to remove a tumor. --08:19 Loretta Paul R.N. Assessment GENERAL / NEURO / PSYCH: Alert. Oriented X 4. Appears in no acute distress. Patient appears calm and cooperative. RESPIRATORY: Respirations not labored. SKIN: Skin is warm and dry. --08:24 Loretta Paul R.N. Interventions ID band on patient. To treatment room. --08:24 Loretta Paul R.N. PHYSICAL ASSESSMENT 08:25 08/17/16. To room via stretcher. GENERAL / NEURO / PSYCH: Alert. Oriented X 4. Appears in no acute distress. RESPIRATORY: Respirations not labored. SKIN: Skin is dry. ( cool). --08:25 Loretta Paul R.N. NURSING PROGRESS NOTES 08:26 08/17/16. Head of bed elevated. Warming measures: blanket applied (several). Call light placed in reach. Side rails up x 1. Bed placed in lowest position. Brakes of bed on. --08:26 Loretta Paul R.N. 08:54 08/17/16. The patient is sleeping. --08:54 Loretta Paul R.N. 08:53 08/17/16. HR: 82. RR: 16. O2 saturation: 97% on room air. --08:54 Loretta Paul R.N. 09:00. Overall patient status is the same- he states feels the same (appears to be sleeping, opens his eyes, looks at me then closes them). RESPIRATORY: No respiratory distress. SKIN: Skin is warm and dry. --09:08 Loretta Paul R.N. 09:32 I have asked him 3 more times to get up, get his clean clothes on ( he says he has clean clothes in his bag), and get going as he is discharged, last time he asked for food, this time his response was "I need to rest". --09:34 Loretta Paul R.N. 09:38 in the room again with [employer], I asked him again to get up and dressed, the [employer] advised him to get dressed and the ERMD came in the room and told him it was time to go, he just closed his eyes and made no effort to get up, police were called to trespass him and remove him from the room. --09:41 Loretta Paul R.N. DISPOSITION / DISCHARGE Departure time: 0900. Condition at departure: unchanged and stable. Ability to learn limited by poor cooperation; teaching performed with the patient. Discharge instructions provided and reviewed with the patient. Patient verbalized understanding. Written instructions provided in Lithuanian. The patient was discharged home and unaccompanied at time of discharge. He left the Emergency Department ambulatory. FALL RISK ASSESSMENT: Fall risk assessment completed. No fall risk identified. --09:06 Loretta Paul R.N. 09:00 08/17/16. BP: 101/71. HR: 83. RR: 16. O2 saturation: 99% on room air. Pain level now: 0/10. --09:06 Loretta Paul R.N. [id number]. ( police were called to remove the pt from ED, Crisis Triage wouldn't take him at request of the police, Police ask that he be evaluated for assistance from [facility]ISA, Dr Babcock spoke with police, plan made). --11:12 Loretta Paul R.N. Locked/Released at 08/17/2016 11:13 by Loretta Paul R.N.
--- NOTE | 2016-08-17 11:13 | ED DISCHARGE INSTRUCTIONS ---
Patient: LORNE MOLINA General Instructions [facility] VisitID: [id number] [address] [place] [address] 65y, M Registration Date/Time: 08/17/2016 Single superficial skin avulsion of the left foot. (No repair). No foreign body present. INSTRUCTIONS Protect wound and keep wound area clean. You may wash wounds briefly, then dry. Apply bacitracin twice daily. Your Current Medications: CONTINUE TAKING THE FOLLOWING MEDICATIONS: None*. Follow-up: Screening today revealed the patient's blood pressure to be in the pre-hypertensive range. The patient should follow up with a primary care provider for blood pressure management. Follow-up with: [facility], , , [address], [place], [address] Follow up in about two days. Call for an appointment. (Electronically signed by Zay Hernandez Dr. 08/17/2016 9:46)
--- NOTE | 2016-08-17 11:13 | ED MAR SUMMARY ---
..... Medication Administration Record [facility] [address] [place], [place] [id number] Patient: LORNE MOLINA Hillary Visit ID: [id number] 65y, M Weight: 81.6 kg Height/Length: 70 in BMI: 25.8 ALLERGIES: None
--- NOTE | 2016-08-17 11:13 | ED MED RECONCILIATION SUMMARY ---
Patient: LORNE MOLINA Medication Reconciliation Report [facility] VisitID: [id number] [address] [place] [address] 65y, M Registration Date/Time: 08/17/2016 Weight: 81.6 kg Height/Length: 70 in. BMI: 25.8 ALLERGIES: None The patient's Home Medications are listed below: NONE. The source(s) of the original Home Medication information: patient The following Medications were given to the patient in the Emergency Department: None. The following Medications were prescribed to the patient: None.
--- NOTE | 2016-08-17 11:13 | ED DISCHARGE INSTRUCTIONS ---
Patient: LORNE MOLINA General Instructions [facility] VisitID: [id number] [address] [place] [place] [address] 65y, M Registration Date/Time: 08/17/2016 Single superficial skin avulsion of the left foot. (No repair). No foreign body present. INSTRUCTIONS Protect wound and keep wound area clean. You may wash wounds briefly, then dry. Apply bacitracin twice daily. Your Current Medications: CONTINUE TAKING THE FOLLOWING MEDICATIONS: None*. Follow-up: Screening today revealed the patient's blood pressure to be in the pre-hypertensive range. The patient should follow up with a primary care provider for blood pressure management. Follow-up with: [facility], , , [address], [place], [address] Follow up in about two days. Call for an appointment. (Electronically signed by Zay Hernandez Dr. 08/17/2016 9:46)
--- NOTE | 2016-08-17 11:13 | ED MED RECONCILIATION SUMMARY ---
Patient: LORNE MOLINA Medication Reconciliation Report [facility] VisitID: [id number] [address] [place] [address] 65y, M Registration Date/Time: 08/17/2016 Weight: 81.6 kg Height/Length: 70 in. BMI: 25.8 ALLERGIES: None The patient's Home Medications are listed below: NONE. The source(s) of the original Home Medication information: patient The following Medications were given to the patient in the Emergency Department: None. The following Medications were prescribed to the patient: None.
--- NOTE | 2016-08-17 11:13 | ED MAR SUMMARY ---
..... Medication Administration Record [facility] [address] [place], [place] [id number] Patient: LORNE MOLINA Hillary Visit ID: [id number] 65y, M Weight: 81.6 kg Height/Length: 70 in BMI: 25.8 ALLERGIES: None
== END 2016-08-17 09:00 | disposition home or self-care (01) ==
LOC: ED SRH 08:06
DX: S91.302A Unspecified open wound, left foot, initial encounter (principal); X58.XXXA Exposure to other specified factors, initial encounter; Y92.410 Unspecified street and highway as the place of occurrence of the external cause

== ENCOUNTER 2016-08-17 10:26 | Emergency (ER) | payer OTHER ==
--- NOTE | 2016-08-18 00:41 | ED ORDER SUMMARY ---
..... Patient: LORNE MOLINA OrderSheet [facility] VisitID: [id number] [address] [place] [address] 65y, M Registration Date/Time: 08/17/2016 ORDER SHEET Weight: 78.9 kg (stated) Allergies: None GENERAL ORDERS: CBC w Diff Urgent (10:39 08/17/2016 Ajay JUDD) (Ack 10:40 KHoerner) (10:56 KHoerner) CMP Urgent (10:39 08/17/2016 Ajay JUDD) (Ack 10:40 MANOJoeivettner) (10:56 KHoerner) UA-Culture if indicated Urgent (10:39 08/17/2016 Ajay JUDD) (Ack 10:40 KHoerner) (11:52 ALawrence ER Tech1) Urine Drug Screen Urgent (10:39 08/17/2016 Ajay JUDD) (Ack 10:40 KHoerner) (11:52 ALawrence ER Tech1) Ethyl Alcohol Urgent (10:39 08/17/2016 Ajay JUDD) (Ack 10:40 MANOJoeivettner) (10:56 KHoerner) MEDICATION ORDERS: IV FLUIDS: ORDER SHEET NOTES: [Electronically signed by Rebecca Solomon (02:05 08/18/2016)] [Electronically signed by Verónica Cao MD (13:51 08/22/2016)] [Electronically locked/signed by Rebecca Solomon (02:05 08/18/2016)]
--- NOTE | 2016-08-18 00:41 | ED NURSING NOTES ---
Clinical Report - Nurses [facility] [place] [place] [address] 08/17/2016 10:27 Patient: LORNE MOLINA TRIAGE Triage time 1015. Acuity: LEVEL 3. Chief Complaint: DEPRESSION. Alert. No acute distress. ANGELA COMA SCORE: Angela Coma Scale: 15- eyes open spontaneously (4); best verbal response- oriented x 4 (5); best motor response- obeys commands (6). --11:01 Loretta Paul R.N. 10:58 08/17/16. BP: 112/66. HR: 82. RR: 16. O2 saturation: 100% on room air. Temp: 98.2 F (oral). Pain level now: 0/10. --11:01 Loretta Paul R.N. Weight: 78.9 kg stated. Height/Length: 71 inches Per Patient. BMI: 24.3. --10:59 Loretta Paul R.N. Medications None. --10:41 Loretta Paul R.N. Medication/allergy information source: the patient. --11:01 Loretta Paul R.N. Allergies None. --10:41 Loretta Paul R.N. History Arrived by EMS. Historian: police and patient. Unaccompanied. Primary physician (Sebas). This is a recurrent problem. ( called the police to have the pt removed from the ED after he was discharged form his previous visit, police tried to get him into the Triage Center, they wouldn't take him because of his alcoholism, they want him to be evaluated for help from [facility], pt refuses to get undressed of let me help him get into gown). SOCIAL HX: Heavy tobacco smoker- less than 1 pack per day. Regular alcohol use; consumes beer daily. No drug use. FALL RISK ASSESSMENT: Fall risk assessment completed. Risk factors identified include patient impairment of mobility. Fall interventions initiated. Patient placed on stretcher. Side rails up x2. Brakes on Bed in low position. FUNCTIONAL ASSESSMENT: Functional assessment performed: independent with the activities of daily living; mobility impairment present- this mobility impairment is an ongoing problem. LEARNING NEEDS ASSESSMENT: A learning needs assessment was performed. Factors affecting the patient's ability to learn include communication / language barriers. --11: Loretta Paul R.N. PROBLEMS: Substance Abuse [Active]. --10:41 Loretta Paul R.N. Skin Avulsion. Substance Abuse. Mental Illness. Abrasion(s). Alcoholism. Emphysema. Alcohol Intoxication. Contusion. Head Injury. Fall. --10:41 Loretta Paul R.N. Seizure [RuleOut]. Syncope [RuleOut]. Pneumonia [RuleOut]. Hypotension [RuleOut]. --10:41 Loretta Paul R.N. ADDITIONAL SURGERIES: GI surgery to remove a tumor. --10:41 Loretta Paul R.N. Assessment GENERAL / NEURO / PSYCH: Alert. Oriented X 4. Appears in no acute distress. Patient appears calm and cooperative. RESPIRATORY: Respirations not labored. SKIN: Skin is warm and dry. --11: Loretta Paul R.N. Interventions ID band on patient. To treatment room. --11:01 Loretta Paul R.N. PHYSICAL ASSESSMENT 10:47 08/17/16. Ambulatory to room. Patient gowned. GENERAL / NEURO / PSYCH: Alert. Oriented X 4. Appears in no acute distress. Patient appears calm and cooperative. Patient appears unkempt. Poor hygiene and marked body odor. Hair is uncombed and matted. RESPIRATORY: Respirations not labored. SKIN: Skin is warm and dry. --10:47 Loretta Paul R.N. NURSING PROGRESS NOTES 10:48 08/17/16. Patient gowned. Head of bed elevated. Call light placed in reach. Side rails up x 2. Bed placed in lowest position. Brakes of bed on. --10:48 Loretta Paul R.N. 10:48 Mark refused to get into a gown or do anything I asked him to do, Karri CAMPUZANO came in and assisted pt to undress, he also assisted the pt to clean dried feces from his legs, pt then ambulated to the unassisted and voided into a urinal, then back to the room. --10:51 Loretta Paul R.N. 10:51 08/17/16. Blood samples drawn by lab. --10:52 Loretta Paul R.N. :patient confirmed. Clean catch urine collected with return of kimmy-colored cloudy urine; sample sent to lab. Specimen labeled in the presence of the patient (voided approx 400 ml). --10:57 Loretta Paul R.N. 11:01 pt asking for 2 turkey sandwiches, a bag of chips and a bowl of soup. --11:01 Loretta Paul R.N. 11:02 pt has red, scabbed, abrasions on inside of bilat thighs. Patient gowned (with assistance of RN). Patient hygiene performed: received partial bath. Patient is incontinent of stool. Warming measures: blanket applied. Assisted patient (to clean himself). --11:03 Loretta Paul R.N. 12:24 spoke with inhouse urban planner, she states that pt has resources and is alert and oriented he has access to assistance through his state insurance but he needs to be willing to help himself. --12:26 Loretta Paul R.N. 14:03 08/17/16. ( Gave pt ice water and half of a turkey sandwich). --14:03 Lorene Mcgrath, KEVIN Tech1 15:05. The patient is resting quietly. Overall patient status is the same- he states feels the same. GENERAL / NEURO / PSYCH: Alert. RESPIRATORY: No respiratory distress. SKIN: Skin is warm and dry. --15:05 Loretta Paul R.N. 16:30. The patient is resting quietly. --18:10 Loretta Paul R.N. 18:00 pt is up and wandering in the rudd, getting agitated and wants to get something out of his belongings, redirected him to return to his room and second RN asked him to go go back then Police assisted him to room where door was closed and locked. --18:20 Loretta Paul R.N. ( Patient resting quietly. PO food and fluids offered.). --19:28 Rebecca Solomon ( Patient states, " I want to leave now". Patient informed on plan of care and arrival of PAT team. Patient given coffee and blankets. Patient given bedside commode. Patient is cooperative at this time.). --20:02 Rebecca Solomon GENERAL / NEURO / PSYCH: Alert. Patient appears calm and cooperative. RESPIRATORY: No respiratory distress. SKIN: Skin is warm and dry. Skin color within normal limits. ( Patient given new urinal. 500 ml of yellow urine disposed of from urinal. Patient has no complaints at this time.). --21:02 Rebecca Solomon The patient is sleeping. --21:26 Rebecca Solomon The patient reports no complaints. GENERAL / NEURO / PSYCH: Alert. Patient appears calm and cooperative. RESPIRATORY: No respiratory distress. SKIN: Skin is warm and dry. Skin color within normal limits. ( Patient given more PO fluids and food.). --22:34 Rebecca Solomon 00:08 PAT utility maintenance worker here. --00:08 McQuoid, Kimmy, ER Tech1 23:30 08/17/16. Warming measures: blanket applied. Assisted patient with urinal. ( Coffee provided to patient, patient updated on ETA for PAT team. Patient states, " I dont need mental help".). --01:12 Rebecca Solomon 00:40 08/18/16. ( PAT team and ED provider discussed plan of care. Patient aware of plan of care.). --00:59 Rebecca Solomon 01:00 08/18/16. ( Restraints discontinued at 00:40, door unlocked and patient given his belongings. Patient given money that was stored in the safe during his stay. Security Aiden Salvador witness the return of the patients belongings.). --01:02 Rebecca Solomon. DISPOSITION / DISCHARGE 01:00 08/18/16. Condition at departure: stable. The goals identified in the patient's plan of care were met. Learning barriers present. Ability to learn limited by poor cooperation. Discharge instructions provided and reviewed. Reviewed need for increased fluid intake. Patient verbalized understanding. Written instructions provided in [place]ican. ( Follow up with appropriate resources, patient provided resource list. Patient states, " I dont want to spend money on rent and all that, I need to save my money for other things". Patient encouraged to seek help for his alcoholism, pt states " I dont have an alcohol problem, I just drink a beer or two for gout". Patient refuses all resources or assistance for treatment and detox. Patients belongings returned to him, witness by security.). The patient was discharged by the physician. He was discharged (hotel) and unaccompanied at time of discharge. He left the Emergency Department ambulatory and via taxi. Driving (taxi). FALL RISK ASSESSMENT: Fall risk assessment completed. No fall risk identified. --01:10 Rebecca Solomon 01:02 08/18/16. BP: 133/79. HR: 80. RR: 20. O2 saturation: 100% on room air. Temp: 98 F (oral). Pain level now: 01/03. --01:10 Rebecca Solomon. Locked/Released at 08/18/2016 2:05 by Rebecca Solomon,
--- NOTE | 2016-08-18 00:41 | ED ORDER SUMMARY ---
..... Patient: LORNE MOLINA OrderSheet [facility] VisitID: [id number] [address] [address] 65y, M Registration Date/Time: 08/17/2016 ORDER SHEET Weight: 78.9 kg (stated) Allergies: None GENERAL ORDERS: CBC w Diff Urgent (10:39 08/17/2016 Ajay JUDD) (Ack 10:40 KHoerner) (10:56 KHoerner) CMP Urgent (10:39 08/17/2016 Ajay JUDD) (Ack 10:40 MANOJoeivettner) (10:56 KHoerner) UA-Culture if indicated Urgent (10:39 08/17/2016 Ajay JUDD) (Ack 10:40 KHoerner) (11:52 ALawrence ER Tech1) Urine Drug Screen Urgent (10:39 08/17/2016 Ajay JUDD) (Ack 10:40 KHoerner) (11:52 ALawrence ER Tech1) Ethyl Alcohol Urgent (10:39 08/17/2016 Ajay JUDD) (Ack 10:40 MANOJoeivettner) (10:56 KHoerner) MEDICATION ORDERS: IV FLUIDS: ORDER SHEET NOTES: [Electronically signed by Rebecca Solomon (02:05 08/18/2016)] [Electronically signed by Verónica Cao MD (13:51 08/22/2016)] [Electronically locked/signed by Rebecca Solomon (02:05 08/18/2016)]
--- NOTE | 2016-08-18 00:41 | ED CLINICAL REPORT ---
Clinical Report - Physicians/Mid Levels [facility] [address] [place] [address] 08/17/2016 10:27 Patient: LORNE MOLINA Time Seen: 10:35. Arrived- By ambulance. Historian- patient, EMS personnel and police. HISTORY OF PRESENT ILLNESS Chief Complaint: PSYCHIATRIC EVALUATION REQUESTED. This started today. The patient has experienced situational problems (The patient was brought into the emergency room earlier this morning. Reportedly he had been found by EMS sleeping in front of a storage facility door. They brought him in for a wellness check and he was seen by Dr. Hernandez. He was to be discharged however nursing staff were not able to get him to cooperate. [place] [employer] were contacted and they expressed concern that this man who is known to them may not be safe living on the streets. He reportedly has money that he inherited from a brother. However, he tells me that he does not want to spend his money on rent. The police officers appear that he may suffer from memory problems. And they are concerned for his safety.). He was not found wandering and is compliant with medication. No recent drug use. Recent alcohol consumption. Has exhibited unusual behavior but been eating or sleeping or not been depressed. No anxiety, anger, paranoia, delusions or suicidal thoughts. No self-injury inflicted or hallucinations. The symptoms are described as mild. No injury is present. Pt has no complaints. He states he sleeps at the storage facility, because the buildings have a nice overhang, and he won't get wet if it rains. He states he does not want to stay at a half-way. Pt has been here multiple times in the past. Additional history - Pt has been seen here many times for alcohol-related problems. Similar symptoms previously: REVIEW OF SYSTEMS No chills, fever, sweats, runny nose or sore throat. No calf pain, chest pain, cough, difficulty breathing or pedal edema. No palpitations, abdominal pain, constipation, diarrhea or nausea. No vomiting, urinary problems, back pain, laceration or headache. All systems otherwise negative, except as recorded above. PAST HISTORY Problems: Alcoholism. Emphysema. Additional Surgeries: GI surgery to remove a tumor. Medications: None. Allergies: None. SOCIAL HISTORY Smoker- current status unknown. Alcohol use. No drug use. Has poor social support. No place to stay. ADDITIONAL NOTES The nursing notes have been reviewed. PHYSICAL EXAM Vital Signs: 08/17/2016 10:58 BP: 112/66. HR: 82. RR: 16. O2 saturation: 100%. Temp: 98.2 F. Pain level now: 0/10. Have been reviewed. Appearance: No acute distress. He appears older than stated age, is disheveled and has poor hygiene. Patient is. Appears detached. Eyes: Pupils equal, round and reactive to light. Neck: Neck supple. CVS: Normal heart rate and rhythm. Heart sounds normal. Respiratory: Breath sounds normal. Abdomen: Soft and nontender. Back: No tenderness. Skin: Skin warm and dry. Extremities: No calf tenderness. No lower extremity edema. Psych / Neuro: Mood and affect normal. He seems unconcerned about his current condition. Cranial nerves normal (as tested). No cerebellar findings. (tremulous). LABS, X-RAYS, AND EKG Laboratory Tests: UA-Culture if indicated: (ROXANNE: 08/17/2016 10:50) ( MsgRcvd 08/17/2016 11:25) Final results Test Result Flag Units (Reference) URINE COLOR YELLOW URINE APPEARANCE CLEAR URINE GLUCOSE NEGATIVE (NEGATIVE) URINE BILIRUBIN ICTOTEST NEGATIVE (NEGATIVE) URINE KETONE 1+ (NEGATIVE) URINE SPECIFIC GRAVITY <= 1.005 L (1.010-1.030) URINE PH 6.0 (5.0-8.0) URINE PROTEIN NEGATIVE (NEGATIVE) URINE UROBILINOGEN 0.2 EU/dL (0.2-1.0) URINE NITRITE NEGATIVE (NEGATIVE) URINE BLOOD TRACE-INTACT (NEGATIVE) URINE LEUK ESTERASE NEGATIVE (NEGATIVE) URINE RBC RARE rbc/hpf (0-1) URINE WBC NONE SEEN wbc/hpf (0-1) URINE EPITHELIAL CELLS NONE SEEN EPI/hpf (0-5) URINE BACTERIA NONE SEEN (NONE SEEN) URINE COMMENT CULT NOT INDICATED URINE CULTURES ARE SET-UP BASED ON THE FOLLOWING CRITERIA:POSITIVE NITRITEPOSITIVE LEUKOCYTE ESTERASEGREATER THAN 10 WHITE BLOOD CELLSMODERATE (2+) OR GREATER BACTERIA CBC w Diff: (ROXANNE: 08/17/2016 10:51) ( [facility] [place] 08/17/2016 11:13) Final results Test Result Flag Units (Reference) WHITE BLOOD COUNT 12.6 H K/uL (4.5-11.5) RED BLOOD COUNT 4.84 M/uL (4.50-5.90) HEMOGLOBIN 14.6 gm/dL (13.5-17.5) HEMATOCRIT 43.5 % (41.0-53.0) MEAN CELL VOLUME 90 fL (80-100) MEAN CORPUSCULAR HGB 30 pg (26-34) MEAN CORPUSCULAR HGB CONC 34 g/dL (31-37) RED CELL DISTRIBUTION WIDTH 15.8 H % (11.6-14.8) PLATELET COUNT 195 K/uL (150-400) NEUTROPHIL % 82.8 H % (50-75) LYMPH % 10.0 L % (25-40) MONO % 6.9 % (3-14) EOSINOPHIL % 0.2 % (0-4) BASOPHIL % 0.1 % (0-2) Urine Drug Screen: (ROXANNE: 08/17/2016 10:50) ( [facility] [place]17[place] 11:25) Final results Test Result Flag Units (Reference) AMPHETAMINE/METHAMPHETAMINE NEGATIVE (NEGATIVE) BARBITURATE NEGATIVE (NEGATIVE) BENZODIAZEPINE NEGATIVE (NEGATIVE) CANNABINOID NEGATIVE (NEGATIVE) COCAINE NEGATIVE (NEGATIVE) ECSTASY NEGATIVE (NEGATIVE) METHADONE NEGATIVE (NEGATIVE) OPIATE NEGATIVE (NEGATIVE) The urine drug screen is a qualitative screening test fordrug overdose and abuse. All screen results should beconsidered as presumptive.Drugs screened for are as follows:BenzodiazepinesCocaineAmphetamines/MetamphetaminesTHC (Tetrahydrocannabinol)OpiatesBarbituratesEcstasyMethadonePositive results are unconfirmed. For confirmation, notifythe lab for the specimen to be sent to the reference lab.All confirmations must be performed by a differentmethodology.The ingestion of natural herbal and plant productscontaining Ephedra/Ephedra metabolites can produce in urineone or more substances capable of cross reacting withamphetamine/methamphetamine immunoassays. These testsprovide a preliminary result only. A more specificalternative chemical method must be used to obtain aconfirmed analytical result. CMP: (ROXANNE: 08/17/2016 10:51) ( MsgRcvd 08/17/2016 11:24) Final results Test Result Flag Units (Reference) GLUCOSE 105 mg/dL (70-110) BUN 10 mg/dL (7-18) CREATININE 0.8 mg/dL (0.6-1.3) Estimated GFR >60 mL/min Estimated GFR- >60 mL/min Note: Persistent reduction over 3 months in eGFR<60 mL/min/1.73 m2 defines CKD. Patients with eGFR values>=60 mL/min/1.73 m2 may also have CKD if evidence ofpersistent proteinuria. Additional information may be foundat www.kidney.org. SODIUM 134 L mmol/L (136-145) POTASSIUM 4.1 mmol/L (3.5-5.1) CHLORIDE 99 mmol/L (98-107) CARBON DIOXIDE 27 mmol/L (21-32) CALCIUM 9.2 mg/dL (8.5-10.1) TOTAL PROTEIN 7.8 g/dL (6.4-8.2) ALBUMIN 3.8 g/dL (3.3-5.0) BILIRUBIN, TOTAL 1.4 H mg/dL (0.0-1.0) ALKALINE PHOSPHATASE 100 U/L (46-116) AST (SGOT) 22 U/L (15-37) ALT (SGPT) 23 U/L (12-78) ETHYL ALCOHOL <3 L mg/dL (3-10) . Pulse Oximetry: 08/17/2016 10:58 O2 saturation: 100%. (FIO2 - room air). Interpretation: normal. PROGRESS AND PROCEDURES Course of Care: 21:37 08/17/16. The case was discussed with Dr. Cao at change of shift. we reviewed the patient's history and physical examination findings as well as results of his studies. A mental health evaluation is pending. She will arrange an appropriate disposition for the patient after that consult. - ADELIA Cao note: This pt was signed out to me by Dr Babcock, pending ESW evaluation, after resisted discharge and [employer] requested mental health eval. Pt was alert and non-intoxicated. He was able to speak coherently. Pt was cleared by ESW, and was compliant with discharge. Pt declined a half-way list, stating he doesn't want to stay at a half-way. He asked for a bus pass so he could get back to the storage unit, and was given a bus pass to use as he chooses. Patient is stable. Patient counseled in person regarding the patient's stable condition, diagnosis and need for follow-up. Concerns were addressed. Old medical records reviewed. Disposition: Discharged. Condition: stable. CLINICAL IMPRESSION Chronic substance abuse- alcohol. No intoxication. INSTRUCTIONS Warnings: GENERAL WARNINGS: Return or contact your physician immediately if your condition worsens or changes unexpectedly, if not improving as expected, or if other problems arise. Understanding of the discharge instructions verbalized by patient. Follow-up with: [facility], , , [address], , [facility] [address] Follow up as needed. (Electronically signed by Verónica Cao MD 08/22/2016 13:51)
--- NOTE | 2016-08-22 13:52 | ED MAR SUMMARY ---
..... Medication Administration Record [facility] [address] [place], [place] [id number] Patient: LORNE MOLINA Hillary Visit ID: [id number] 65y, M Weight: 78.9 kg Height/Length: 71 in BMI: 24.3 ALLERGIES: None
--- NOTE | 2016-08-22 13:52 | ED MED RECONCILIATION SUMMARY ---
Patient: LORNE MOLINA Medication Reconciliation Report [facility] VisitID: [id number] [address] [place] [address] 65y, M Registration Date/Time: 08/17/2016 Weight: 78.9 kg Height/Length: 71 in. BMI: 24.3 ALLERGIES: None The patient's Home Medications are listed below: NONE. The source(s) of the original Home Medication information: patient The following Medications were given to the patient in the Emergency Department: None. The following Medications were prescribed to the patient: None.
--- NOTE | 2016-08-22 13:52 | ED DISCHARGE INSTRUCTIONS ---
Patient: LORNE MOLINA General Instructions [facility] VisitID: [id number] [address] [place] [address] 65y, M Registration Date/Time: 08/17/2016 Chronic substance abuse- alcohol. No intoxication. INSTRUCTIONS Warnings: GENERAL WARNINGS: Return or contact your physician immediately if your condition worsens or changes unexpectedly, if not improving as expected, or if other problems arise. Understanding of the discharge instructions verbalized by patient. Follow-up with: [facility], , , [address], , [place], [address] Follow up as needed. (Electronically signed by Verónica Cao MD 08/22/2016 13:51)
--- NOTE | 2016-08-22 13:52 | ED MAR SUMMARY ---
..... Medication Administration Record [facility] [address] [place], [place] [id number] Patient: LORNE MOLINA Hillary Visit ID: [id number] 65y, M Weight: 78.9 kg Height/Length: 71 in BMI: 24.3 ALLERGIES: None
--- NOTE | 2016-08-22 13:52 | ED MED RECONCILIATION SUMMARY ---
Patient: LORNE MOLINA Medication Reconciliation Report [facility] VisitID: [id number] [address] [place] [address] 65y, M Registration Date/Time: 08/17/2016 Weight: 78.9 kg Height/Length: 71 in. BMI: 24.3 ALLERGIES: None The patient's Home Medications are listed below: NONE. The source(s) of the original Home Medication information: patient The following Medications were given to the patient in the Emergency Department: None. The following Medications were prescribed to the patient: None.
--- NOTE | 2016-08-22 13:52 | ED DISCHARGE INSTRUCTIONS ---
Patient: LORNE MOLINA General Instructions [facility] VisitID: [id number] [address] [address] 65y, M Registration Date/Time: 08/17/2016 Chronic substance abuse- alcohol. No intoxication. INSTRUCTIONS Warnings: GENERAL WARNINGS: Return or contact your physician immediately if your condition worsens or changes unexpectedly, if not improving as expected, or if other problems arise. Understanding of the discharge instructions verbalized by patient. Follow-up with: [facility], , , [address], , [place], [address] Follow up as needed. (Electronically signed by Verónica Cao MD 08/22/2016 13:51)
== END 2016-08-18 01:00 | disposition home or self-care (01) ==
LOC: ED SRH 10:26
DX: F10.10 Alcohol abuse, uncomplicated (principal)
CPT/HCPCS: 90004; 90074; 90100; 92010; 92760; 92761; 92762; 92763; 92764; 92765; 92766; 92767; 95059